=== PATIENT | female | born 1940 | race Caucasian/White ===

== ENCOUNTER 2017-08-01 23:54 | Observation (INO) | payer MEDICARE ==
[~2017-08-01] VITALS: Ht 167.6 cm; Wt 92.3 kg
[~2017-08-01 23:54] MED LIST: ACETAMINOPHEN500 M3 PO; ALDACTONE 25MG25 MG NG; AMARYL 2MG TABLE2 MG PO; ASPIRIN 81MG TA81 MG PO; BACTRIM DS 8001 TA1 PO; BUMETANIDE2 MG PO; CARVEDILOL 1212.5 MG PO; DILTIAZEM 180180 MG PO; DIPHENHYDRAMINE25 M1 PO; ELIQUIS5 MG PO; FUROSEMIDE80 MG PO; GLIMEPIRIDE 2MG2 MG PO; HUMALOG MIX75/253 ML SC; IPRATROPIUM BROM3 M2 IH; ISOSORBIDE MONO30 MG PO; LEVAQUIN500 MG PO; LEVOTHYROXINE0.05 M2 PO; LOPRESSOR 50 MG50 MG PO; NITROGLYCERIN0.4 MG SL; NOVOLIN 70/30 710 ML SC; OXYBUTYNIN5 MG PO; PANTOPRAZOLE SO40 M1 PO; PRAVASTATIN 40M40 MG PO; PREDNISONE 20MG20 MG PO; PROZAC40 MG PO
[2017-08-01 23:55] VITALS: BP 139/70
[2017-08-02] VITALS (9 sets, daily range): BP systolic 115–151; BP diastolic 42–90
--- OUTSIDE RECORDS SUMMARY | 2017-08-02 00:14 | External Medical Summary Rpt | Continuity of Care Document ---
Author Author Organization Address Unknown Phone Unavailable Care Team Providers Care Assessment Specialist Name Role Phone , Unavailable Unavailable EMS Current Medications Section EMS Allergies and Adverse Reactions EMS Past Medical History Medications Administered Section EMS Procedures Performed EMS Vital Signs EMS Patient Care Report Narrative dispatched to [facility] for transport to SNF. upon arrival pt was in treatment chair. pt was able to stand and pivot with assistance with no incident. pt was transported by stretcher due to being unable to sit upright safely due to severe pain from compression fracture to back. while transporting pt was monitored and assessed with all findings documented elsewhere in this report. upon arrival pt was taken to room where crew transferred pt into bed with no incident. pt satnam was turned over to staff
--- OUTSIDE RECORDS SUMMARY | 2017-08-02 00:14 | External Medical Summary Rpt | Continuity of Care Document ---
Author Author Organization Address Unknown Phone Unavailable Care Team Providers Care Warehouse Technician Name Role Phone , Unavailable Unavailable EMS Current Medications Section EMS Allergies and Adverse Reactions EMS Past Medical History Medications Administered Section EMS Procedures Performed EMS Vital Signs EMS Patient Care Report Narrative dispatched to [facility] for transport to SNF. upon arrival pt [...]
--- OUTSIDE RECORDS SUMMARY | 2017-08-02 00:16 | External Medical Summary Rpt | Continuity of Care Document ---
Author Author Organization Address Unknown Phone Unavailable Care Team Providers Care Corporate Security Manager Name Role Phone , Unavailable Unavailable EMS Current Medications Section EMS Allergies and Adverse Reactions EMS Past Medical History Medications Administered Section EMS Procedures Performed EMS Vital Signs EMS Patient Care Report Narrative on arrival the patient was sitting in a chair in the reclined position. the patient has finished her scheduled dialysis treatment. the patient stated she was able to stand on one leg with assistance and pivot and sit down on the cot. the patient was assisted to the cot and secured. the patients vitals were taken. the patient is alert. the patients back pain is about a 5 out of 10. the patient was transported without change. vitals were monitored en route. the patients pain level remained the same during transport. at destination the patient was assisted to the bed from the cot. patient care was turned over to the nurse.
--- OUTSIDE RECORDS SUMMARY | 2017-08-02 00:16 | External Medical Summary Rpt | Continuity of Care Document ---
Author Author Organization Address Unknown Phone Unavailable Care Team Providers Care Ingot Car Operator Name Role Phone , Unavailable Unavailable EMS Current Medications Section EMS Allergies and Adverse Reactions EMS Past Medical History Medications Administered Section EMS Procedures Performed EMS Vital Signs EMS Patient Care Report Narrative Dispatched for a transfer call from [facility] to [facility] for a 76 y/o female going for a dialysis appointment. Pt has a history of renal failure, COPD, hypertension, depression, asthma, atrial fibrillation, urinary tract infection, congestive heart failure, hyperlipidemia, hypothyroid, and diabetes. Pt requires stretcher transport due to inability to sit upright safely during transport. Pt has leg fracture and chronic back pain due to compression fracture. Pt is unable to sit upright for long periods of time. Arrived on scene to find pt sitting in wheelchair in mild discomfort. Pt was transferred from wheelchair to stretcher via stand and pivot x1 assist. No incident occurred. Pt was on 2 lpm of oxygen upon arrival on scene however pt chose to take nasal cannula off for transport. No difficulty breathing was noticed so oxygen was not administered en route to dialysis. Rails were placed in upright position and seatbelts were used to mine analyst's specifications. Vitals were taken and are as recorded in previous section of this report. Pt remained unchanged during transport. Arrived at destination and transferred pt from stretcher to chair via stand and pivot x1 assist. No incident occurred. Pt was reclined in chair to allow legs to be outstretched and patient to be in more comfortable position for back pain. Verbal report was given to nurse and care was transferred to receiving facility.
--- OUTSIDE RECORDS SUMMARY | 2017-08-02 00:16 | External Medical Summary Rpt | Continuity of Care Document ---
Author Author Organization Address Unknown Phone Unavailable Care Team Providers Care Embedded Software Programmer Name Role Phone , Unavailable Unavailable EMS [...]
--- OUTSIDE RECORDS SUMMARY | 2017-08-02 00:16 | External Medical Summary Rpt | Continuity of Care Document ---
Author Author Organization Address Unknown Phone Unavailable Care Team Providers Care Client Care Consultant Name Role Phone , Unavailable Unavailable EMS Current Medications Section EMS Allergies and Adverse Reactions EMS Past Medical History Medications Administered Section EMS Procedures Performed EMS Vital Signs EMS Patient Care Report Narrative pt at [place] bed #1307 pt c o pos for esbl esrd right lower leg fx and back injury with compression pt moved to the cot and secured pt tm tx to [facility] [place] pt placed in a chair for her tm pt and report turned over to dialysis staff with her bag.
--- OUTSIDE RECORDS SUMMARY | 2017-08-02 00:16 | External Medical Summary Rpt | Continuity of Care Document ---
Author Author Organization Address Unknown Phone Unavailable Care Team Providers Care Buffer Machine Name Role Phone , Unavailable Unavailable EMS Current Medications Section EMS Allergies and Adverse Reactions EMS Past Medical History Medications Administered Section EMS Procedures Performed EMS Vital Signs EMS Patient Care Report Narrative pt at [place] bed #1307 pt c o pos for esbl esrd right lower leg fx and back injury with compression pt moved to the cot and secured pt tm tx to [facility] [place] pt placed in a chair for her tm pt and report turned over to dialysis staff with her bag.
--- OUTSIDE RECORDS SUMMARY | 2017-08-02 00:16 | External Medical Summary Rpt | Continuity of Care Document ---
Author Author Organization Address Unknown Phone Unavailable Care Team Providers Care Clamper Name Role Phone , Unavailable Unavailable EMS [...]
--- OUTSIDE RECORDS SUMMARY | 2017-08-02 00:16 | External Medical Summary Rpt | Continuity of Care Document ---
Author Author Organization Address Unknown Phone Unavailable Care Team Providers Care Testing Projects Administrator Name Role Phone , Unavailable Unavailable EMS Current Medications Section EMS Allergies and Adverse Reactions EMS Past Medical History Medications Administered Section EMS Procedures Performed EMS Vital Signs EMS Patient Care Report Narrative pt at [place] bed #1307 pt c o pos for esbl esrd right lower leg fx and back injury with compression pt moved to the cot and secured pt tm tx to [facility] [place] pt placed in a chair for her tm pt and report turned over to dialysis staff with her bag.
--- OUTSIDE RECORDS SUMMARY | 2017-08-02 00:16 | External Medical Summary Rpt | Continuity of Care Document ---
Author Author Organization Address Unknown Phone Unavailable Care Team Providers Care Fryer Line Helper Name Role Phone , Unavailable Unavailable EMS [...]
--- OUTSIDE RECORDS SUMMARY | 2017-08-02 00:16 | External Medical Summary Rpt | Continuity of Care Document ---
Author Author Organization Address Unknown Phone Unavailable Care Team Providers Care Behavioral Health Aide Name Role Phone , Unavailable Unavailable EMS Current Medications Section EMS Allergies and Adverse Reactions EMS Past Medical History Medications Administered Section EMS Procedures Performed EMS Vital Signs EMS Patient Care Report Narrative Dispatched for a transfer call from [facility] to [facility] for a 76 y/o female going for [...] upright position and seatbelts were used to stock parts inspector's specifications. Vitals were taken and are as [...]
--- OUTSIDE RECORDS SUMMARY | 2017-08-02 00:16 | External Medical Summary Rpt | Continuity of Care Document ---
Author Author Organization Address Unknown Phone Unavailable Care Team Providers Care Mechanism Inspector Name Role Phone , Unavailable Unavailable EMS Current Medications Section EMS Allergies and Adverse Reactions EMS Past Medical History Medications Administered Section EMS Procedures Performed EMS Vital Signs EMS Patient Care Report Narrative pt at [place] bed #1307 pt c o pos for esbl esrd right lower leg fx and back injury with compression pt moved to the cot and secured pt tm tx to [facility] [place] pt placed in a chair for her tm pt and report turned over to dialysis staff with her bag.
--- OUTSIDE RECORDS SUMMARY | 2017-08-02 00:17 | External Medical Summary Rpt | Continuity of Care Document ---
Author Author Organization Address Unknown Phone Unavailable Care Team Providers Care Business Analysis Specialist Name Role Phone , Unavailable Unavailable EMS Current Medications Section EMS Allergies and Adverse Reactions EMS Past Medical History Medications Administered Section EMS Procedures Performed EMS Vital Signs EMS Patient Care Report Narrative Dispatched for a transfer call from [facility] to [facility] for a 76 y/o female going for [...] upright position and seatbelts were used to car sander's specifications. Vitals were taken and are as [...]
--- OUTSIDE RECORDS SUMMARY | 2017-08-02 00:17 | External Medical Summary Rpt | Continuity of Care Document ---
Author Author Organization Address Unknown Phone Unavailable Care Team Providers Care Raisin Separator Operator Name Role Phone , Unavailable Unavailable EMS Current Medications Section EMS Allergies and Adverse Reactions EMS Past Medical History Medications Administered Section EMS Procedures Performed EMS Vital Signs EMS Patient Care Report Narrative Dispatched to transport a patient back to [facility] after one of her 3X per week dialysis appointments patient has history of ESRD, Chronic pain due to to leg fracture , and chronic back pain with compressed fracture on arrival received medical report from nurse. located patient supine in reclining chair patients vitals were all with in normal range patient moved to cot with assistance side rails and straps were in place before transport. patient remained calm during transport with no change in condition. on arrival at [facility] patients medical and transport report was given to receiving nurse patient taken to room and moved into bed with assistance side rails were put in place bed lowered before care of patient was turned over to staff
--- OUTSIDE RECORDS SUMMARY | 2017-08-02 00:17 | External Medical Summary Rpt | Continuity of Care Document ---
Author Author Organization Address Unknown Phone Unavailable Care Team Providers Care Patient Accounts Specialist Name Role Phone , Unavailable Unavailable EMS Current Medications Section EMS Allergies and Adverse Reactions EMS Past Medical History Medications Administered Section EMS Procedures Performed EMS Vital Signs EMS Patient Care Report Narrative pt being transported for dialysis tx, which is not available at sending facility. Pt requires special positioning due to severe back pain and is unable to sit up erect for transport. pt found in bed then moved to cot via one person stand and assist. pt secured with straps and rails up. Pt loaded and monitored. Pt taken in on cot and moved to tx chair . report given.
--- OUTSIDE RECORDS SUMMARY | 2017-08-02 00:17 | External Medical Summary Rpt | Continuity of Care Document ---
Author Author Organization Address Unknown Phone Unavailable Care Team Providers Care Timber Framer Name Role Phone , Unavailable Unavailable EMS Current Medications Section EMS Allergies and Adverse Reactions EMS Past Medical History Medications Administered Section EMS Procedures Performed EMS Vital Signs EMS Patient Care Report Narrative dispatched to transort call. pt going from [facility] to [facility]. pt needs stretcher due to vertebral compression fx. pt found sitting in wheel chair in room. pt on room air. pt assisted to stand and pivot to cot x2. pt placed in position of comfort. pt secured to cot via straps x5 rails x2. pt loaded into ambulance. pt monitored per bls protocol during transport and showed no changes. pt unloadaded from ambulance and taken to tx chair at facility. pt assisted to stand and pivot to chair x2. pt care and report given to nurse on staff.
--- OUTSIDE RECORDS SUMMARY | 2017-08-02 00:17 | External Medical Summary Rpt | Continuity of Care Document ---
Author Author Organization Address Unknown Phone Unavailable Care Team Providers Care Time Study Analyst Name Role Phone , Unavailable Unavailable EMS Current Medications Section EMS Allergies and Adverse Reactions EMS Past Medical History Medications Administered Section EMS Procedures Performed EMS Vital Signs EMS Patient Care Report Narrative dispatched to transort call. pt going from [facility] to [facility]. pt needs stretcher due to vertebral [...]
--- OUTSIDE RECORDS SUMMARY | 2017-08-02 00:17 | External Medical Summary Rpt | Continuity of Care Document ---
Author Author Organization Address Unknown Phone Unavailable Care Team Providers Care Voice Professor Name Role Phone , Unavailable Unavailable EMS [...]
--- OUTSIDE RECORDS SUMMARY | 2017-08-02 00:17 | External Medical Summary Rpt | Continuity of Care Document ---
Author Author Organization Address Unknown Phone Unavailable Care Team Providers Care Hip Hop Performers Name Role Phone , Unavailable Unavailable EMS Current Medications Section EMS Allergies and Adverse Reactions EMS Past Medical History Medications Administered Section EMS Procedures Performed EMS Vital Signs EMS Patient Care Report Narrative Unit [address] was dispatched to dialysis center in [place] for pt transport to [facility]. Pt was at dialysis for appt. Pt has a past medical hx which is noted in the pcr and allergies are also noted in the pcr. Pt needed medical transport due to generalized weakness from dialysis appt and is unable to ambulate, per dispatch if insurance does not cover facility will pay for transport. ABC's were within normal ranges with no changes. Upon a head to toe exam no abnormal findings. Pt was found sitting in a recliner, and stood and moved to the stretcher with assistance of crew and strapped in with seatbealts. Upon arrival at facility pt was moved from the stretcher to the bed by [facility] crew using the draw sheet method. All necessary signatures gathered and care handed to higher [facility] and and [facility] departed scene.
--- OUTSIDE RECORDS SUMMARY | 2017-08-02 00:17 | External Medical Summary Rpt | Continuity of Care Document ---
Author Author Organization Address Unknown Phone Unavailable Care Team Providers Care Traveling Buyer Name Role Phone , Unavailable Unavailable EMS Current Medications Section EMS Allergies and Adverse Reactions EMS Past Medical History Medications Administered Section EMS Procedures Performed EMS Vital Signs EMS Patient Care Report Narrative Unit 304 was dispatched to dialysis center in [place] for pt transport to [facility]. Pt was at dialysis for appt. [...] from the stretcher to the bed by [facility] crew using the draw sheet method. All necessary signatures gathered and care handed to higher [facility] [place] and and [facility] departed scene.
--- OUTSIDE RECORDS SUMMARY | 2017-08-02 00:17 | External Medical Summary Rpt | Continuity of Care Document ---
Author Author Organization Address Unknown Phone Unavailable Care Team Providers Care Inside Sales Account Executive Name Role Phone , Unavailable Unavailable EMS Current Medications Section EMS Allergies and Adverse Reactions EMS Past Medical History Medications Administered Section EMS Procedures Performed EMS Vital Signs EMS Patient Care Report Narrative Dispatched to transport a patient back to [facility] after one of her 3X per week [...] no change in condition. on arrival at [facility] patients medical and transport report was given to receiving nurse patient taken to room and moved into bed with assistance side rails were put in place bed lowered before care of patient was turned over to staff
--- OUTSIDE RECORDS SUMMARY | 2017-08-02 00:17 | External Medical Summary Rpt | Continuity of Care Document ---
Author Author Organization Address Unknown Phone Unavailable Care Team Providers Care Heel Sewer Name Role Phone , Unavailable Unavailable EMS Current Medications Section EMS Allergies and Adverse Reactions EMS Past Medical History Medications Administered Section EMS Procedures Performed EMS Vital Signs EMS Patient Care Report Narrative Dispatched to transport a patient back to [facility] after one of her 3X per week [...] in condition. on arrival at [facility] patients medical and transport report was given to receiving nurse patient taken to room and moved into bed with assistance side rails were put in place bed lowered before care of patient was turned over to staff
--- OUTSIDE RECORDS SUMMARY | 2017-08-02 00:17 | External Medical Summary Rpt | Continuity of Care Document ---
Author Author Organization Address Unknown Phone Unavailable Care Team Providers Care Iphone Developer Name Role Phone , Unavailable Unavailable EMS Current Medications Section EMS Allergies and Adverse Reactions EMS Past Medical History Medications Administered Section EMS Procedures Performed EMS Vital Signs EMS Patient Care Report Narrative Unit 304 was dispatched to dialysis center in [place] for pt transport to [facility]. Pt was at dialysis for appt. Pt [...] from the stretcher to the bed by [facility] crew using the draw sheet method. All necessary signatures gathered and care handed to higher [facility] and and [facility] departed scene.
--- OUTSIDE RECORDS SUMMARY | 2017-08-02 00:17 | External Medical Summary Rpt | Continuity of Care Document ---
Author Author Organization Address Unknown Phone Unavailable Care Team Providers Care Aircraft Power Plant Assembler Name Role Phone , Unavailable Unavailable EMS Current Medications Section EMS Allergies and Adverse Reactions EMS Past Medical History Medications Administered Section EMS Procedures Performed EMS Vital Signs EMS Patient Care Report Narrative Dispatched for a transfer call from [facility] to [facility] for a 76 y/o female going [...] upright position and seatbelts were used to kiosk sales representative's specifications. Vitals were taken and are as [...]
--- OUTSIDE RECORDS SUMMARY | 2017-08-02 00:17 | External Medical Summary Rpt | Continuity of Care Document ---
Author Author Organization Address Unknown Phone Unavailable Care Team Providers Care Teller Name Role Phone , Unavailable Unavailable EMS [...]
--- OUTSIDE RECORDS SUMMARY | 2017-08-02 00:17 | External Medical Summary Rpt | Continuity of Care Document ---
Author Author Organization Address Unknown Phone Unavailable Care Team Providers Care Executive Producer Promos Name Role Phone , Unavailable Unavailable EMS Current Medications Section EMS Allergies and Adverse Reactions EMS Past Medical History Medications Administered Section EMS Procedures Performed EMS Vital Signs EMS Patient Care Report Narrative Unit 304 was dispatched to dialysis center in [place] for pt transport to [facility]. Pt [...] from the stretcher to the bed by [facility] crew using the draw sheet method. All necessary signatures gathered and care handed to higher [facility] and and am[facility] departed scene.
--- OUTSIDE RECORDS SUMMARY | 2017-08-02 00:18 | External Medical Summary Rpt | Continuity of Care Document ---
Author Author Organization Address Unknown Phone Unavailable Care Team Providers Care Nitrator Operator Name Role Phone , Unavailable Unavailable EMS Current Medications Section EMS Allergies and Adverse Reactions EMS Past Medical History Medications Administered Section EMS Procedures Performed EMS Vital Signs EMS Patient Care Report Narrative dispatched to transort call. pt going from [facility] to [facility]. pt needs stretcher due to vertebral compression [...]
--- OUTSIDE RECORDS SUMMARY | 2017-08-02 00:18 | External Medical Summary Rpt | Continuity of Care Document ---
Author Author Organization Address Unknown Phone Unavailable Care Team Providers Care Theatrical Agent Name Role Phone , Unavailable Unavailable EMS Current Medications Section EMS Allergies and Adverse Reactions EMS Past Medical History Medications Administered Section EMS Procedures Performed EMS Vital Signs EMS Patient Care Report Narrative Unit was dispatched for a 76 year old female to be transferred back [place]. TRANSPORT REQUIRED DUE TO COPD, CONGESTIVE HEART FAILURE, AND HYPERTENSION. Pt was found awake and oriented x4. She was assisted in being transferred from the chair to the cot. Pt was then aecured via straps x5 and rails x2. Prior to transport a baseline set of vitals were taken. Prior to arrival a second set of vitals were taken. Upon arrival the pt was assisted in transferring from the cot to the bed. Care of the pt was then given to Keyanna Ann RN Unit clear at 19:47.
--- OUTSIDE RECORDS SUMMARY | 2017-08-02 00:18 | External Medical Summary Rpt | Continuity of Care Document ---
Author Author Organization Address Unknown Phone Unavailable Care Team Providers Care Ocean Fishing Guide Name Role Phone , Unavailable Unavailable EMS Current Medications Section EMS Allergies and Adverse Reactions EMS Past Medical History Medications Administered Section EMS Procedures Performed EMS Vital Signs EMS Patient Care Report Narrative Unit was dispatched for a 76 year old female to be transferred back [place]. TRANSPORT REQUIRED DUE TO COPD, CONGESTIVE HEART [...]
--- OUTSIDE RECORDS SUMMARY | 2017-08-02 00:18 | External Medical Summary Rpt | Continuity of Care Document ---
Author Author Organization Address Unknown Phone Unavailable Care Team Providers Care Chucking Lathe Operator Name Role Phone , Unavailable Unavailable EMS Current Medications Section EMS Allergies and Adverse Reactions EMS Past Medical History Medications Administered Section EMS Procedures Performed EMS Vital Signs EMS Patient Care Report Narrative dispatched to transort call. pt going from [facility] to [facility]. pt needs stretcher due to vertebral [...]
--- OUTSIDE RECORDS SUMMARY | 2017-08-02 00:22 | External Medical Summary Rpt | CCD ---
Author Author , [facility] Organization [facility] Address Unknown Phone [email or web address] Purpose Continuity of Care Document - 01-30-2013 through 2016 Results Labs Lab Lab Date Result Refere Interp Status Commen Order Detail nces retati t Range on BNP (NT-proBNP) (06-16-2013 05:56) NT-proB 2837.0 0.0-900 Above complet [employer] 013 pg/mL .0 high ed 05:56 normal PHOSPHORUS,SERUM (06-16-2013 05:56) Phospho 4.4 2.5-4.9 Normal complet amber 013 mg/dL ed 05:56 MAGNESIUM,SERUM (06-16-2013 05:56) Magnesi 2.0 1.8-2.4 Normal complet um 013 mg/dL ed 05:56 TROPONIN I,JERI (IN HOUSE) (06-16-2013 05:56) Troponi 0.37 0.00-0. Above complet n I 013 ng/mL 10 high ed 05:56 normal CPK (06-16-2013 05:56) CK 46 U/L 26-192 Normal complet 013 ed 05:56 BASIC METABOLIC PANEL (06-16-2013 05:56) BUN/Cre 22.8 6.0-20. Above complet at 013 0 high ed Ratio 05:56 normal Anion 9.4 10.0-20 Below complet Gap 013 mEq/L .0 low ed 05:56 normal GLOMERU 29 complet LAR 013 mL/min/ ed FILTRAT 05:56 1.73 m2 ION RATE GLOMERU 35 complet LAR 013 mL/min/ ed FILTRAT 05:56 1.73 m2 ION RATE Sheeba n Glucose 171 70-99 Above complet 013 mg/dL high ed 05:56 normal BUN 09-06-2 41 7-18 Above complet 013 mg/dL high ed 05:56 normal Creatin -06-2 1.8 0.6-1.3 Above complet ine 013 mg/dL high ed 05:56 normal Sodium 06-16-2 138 136-145 Normal complet 013 mEq/L ed 05:56 Potassi 06-16-2 3.9 3.5-5.1 Normal complet um 013 mEq/L ed 05:56 Chlorid 06-16-2 98 98-107 Normal complet e 013 mEq/L ed 05:56 CO2 06-16-2 34.0 22-29 Above complet 013 mmol/L high ed 05:56 normal Calcium 06-16-2 8.8 8.5-10. Normal complet 013 mg/dL 1 ed 05:56 CBC W/DIFF (06-15-2013 04:15) Lymphoc -05-2 1.6 X 0.7-4.3 Normal complet yte 013 10 ed Count 04:15 Basophi -05-2 0.0 X 0.0-0.1 Normal complet l Count 013 10 ed 04:15 Eosinop -05-2 0.1 X 0.0-0.8 Normal complet hil 013 10 ed Count 04:15 Monocyt -05-2 0.6 X 0.2-1.2 Normal complet e Count 013 10 ed 04:15 Neutrop -05-2 9.3 X 1.5-7.1 Above complet hil 013 10 high ed Count 04:15 normal Basophi -05-2 0.2 % 0.0-2.0 Normal complet ls % 013 ed 04:15 Eosinop -05-2 0.6 % 0.0-4.0 Normal complet hils % 013 ed 04:15 Monocyt -05-2 5.3 % 0.0-13. Normal complet es % 013 0 ed 04:15 Lymphoc 09-05-2 14.0 % 20.0-35 Below complet ytes % 013 .0 low ed 04:15 normal Neutrop -05-2 79.9 % 50.0-70 Above complet hils % 013 .0 high ed 04:15 normal MPV -05-2 9.3 fl 6.6-9.3 Normal complet 013 ed 04:15 RDW -05-2 17.8 % 12.0-15 Above complet 013 .0 high ed 04:15 normal MCV -05-2 80.2 fl 80.0-10 Normal complet 013 0.0 ed 04:15 MCHC -05-2 33.3 32.0-36 Normal complet 013 gm/dL .0 ed 04:15 MCH -05-2 26.7 pg 27.0-32 Below complet 013 .0 low ed 04:15 normal Platele 06-15-2 196 X 140-450 Normal complet t 013 10 ed 04:15 Hematoc -05-2 30.6 % 36.0-47 Below complet rit 013 .0 low ed 04:15 normal Hemoglo -05-2 10.2 12.0-15 Below complet bin 013 gm/dL .0 low ed 04:15 normal RBC 06-15-2 3.81 X 4.20-5. Below complet 013 10 40 low ed 04:15 normal WBC 06-15-2 11.7 X 3.5-9.6 Above complet 013 10 high ed 04:15 normal MAGNESIUM,SERUM (06-15-2013 04:15) Magnesi --2 2.0 1.8-2.4 Normal complet um 013 mg/dL ed 04:15 BASIC METABOLIC PANEL (06-15-2013 04:15) Glucose 06-15-2 108 70-99 Above complet 013 mg/dL high ed 04:15 normal BUN 06-15-2 41 7-18 Above complet 013 mg/dL high ed 04:15 normal Creatin 06-15-2 1.8 0.6-1.3 Above complet ine 013 mg/dL high ed 04:15 normal Sodium 06-15-2 137 136-145 Normal complet 013 mEq/L ed 04:15 Potassi 06-15-2 3.8 3.5-5.1 Normal complet um 013 mEq/L ed 04:15 Chlorid 06-15-2 100 98-107 Normal complet e 013 mEq/L ed 04:15 CO2 06-15-2 32.4 22-29 Above complet 013 mmol/L high ed 04:15 normal Calcium 06-15-2 8.9 8.5-10. Normal complet 013 mg/dL 1 ed 04:15 BUN/Cre 06-15-2 22.8 6.0-20. Above complet at 013 0 high ed Ratio 04:15 normal Anion 8.5 10.0-20 Below complet Gap 013 mEq/L .0 low ed 04:15 normal GLOMERU 29 complet LAR 013 mL/min/ ed FILTRAT 04:15 1.73 m2 ION RATE GLOMERU 06-15-2 35 complet LAR 013 mL/min/ ed FILTRAT 04:15 1.73 m2 ION RATE Sheeba n BNP (NT-proBNP) (06-15-2013 04:15) NT-proB 3455.5 0.0-900 Above complet [employer] 013 pg/mL .0 high ed 04:15 normal PHOSPHORUS,SERUM (06-15-2013 04:15) Phospho 4.0 2.5-4.9 Normal complet amber 013 mg/dL ed 04:15 TROPONIN I,JERI (IN HOUSE) (06-15-2013 04:15) Troponi 0.51 0.00-0. Above complet n I 013 ng/mL 10 high ed 04:15 normal VANCOMYCIN TROUGH (06-14-2013 17:40) Vancomy 10.3 10.0-20 Normal complet jimenez 013 mcg/mL .0 ed Trough 17:40 CPK TOTAL W/CKMB IF INDICATED (06-14-2013 14:45) CK 50 U/L 26-192 Normal complet 013 ed 14:45 TROPONIN I,JERI (IN HOUSE) (2013 14:45) Troponi 0.59 0.00-0. Above complet n I 013 ng/mL 10 high ed 14:45 normal BASIC METABOLIC PANEL (06-14-2013 14:45) Glucose 293 70-99 Above complet 013 mg/dL high ed 14:45 normal BUN 43 7-18 Above complet 013 mg/dL high ed 14:45 normal Creatin 1.8 0.6-1.3 Above complet ine 013 mg/dL high ed 14:45 normal Sodium 133 136-145 Below complet 013 mEq/L low ed 14:45 normal Potassi 4.6 3.5-5.1 Normal complet um 013 mEq/L ed 14:45 Chlorid 98 98-107 Normal complet e 013 mEq/L ed 14:45 CO2 2 30.5 22-29 Above complet 013 mmol/L high ed 14:45 normal Calcium 2 8.5 8.5-10. Normal complet 013 mg/dL 1 ed 14:45 BUN/Cre 23.9 6.0-20. Above complet at 013 0 high ed Ratio 14:45 normal Anion 2 9.2 10.0-20 Below complet Gap 013 mEq/L .0 low ed 14:45 normal GLOMERU 29 complet LAR 013 mL/min/ ed FILTRAT 14:45 1.73 m2 ION RATE GLOMERU 06-14- 35 complet LAR 013 mL/min/ ed FILTRAT 14:45 1.73 m2 ION RATE Sheeba n BNP (NT-proBNP) (06-14-2013 14:45) NT-proB 3824.7 0.0-900 Above complet [employer] 013 pg/mL .0 high ed 14:45 normal BASIC METABOLIC PANEL (06-14-2013 05:15) Sodium 06-14- 135 136-145 Below complet 013 mEq/L low ed 05:15 normal Potassi 4.4 3.5-5.1 Normal complet um 013 mEq/L ed 05:15 Chlorid 101 98-107 Normal complet e 013 mEq/L ed 05:15 CO2 29.7 22-29 Above complet 013 mmol/L high ed 05:15 normal Calcium 8.3 8.5-10. Below complet 013 mg/dL 1 low ed 05:15 normal BUN/Cre 2 24.1 6.0-20. Above complet at 013 0 high ed Ratio 05:15 normal Anion 06-14-2 8.2 10.0-20 Below complet Gap 013 mEq/L .0 low ed 05:15 normal GLOMERU 06-14-2 31 complet LAR 013 mL/min/ ed FILTRAT 05:15 1.73 m2 ION RATE GLOMERU 06-14-2 38 complet LAR 013 mL/min/ ed FILTRAT 05:15 1.73 m2 ION RATE Sheeba n Creatin 06-14-2 1.7 0.6-1.3 Above complet ine 013 mg/dL high ed 05:15 normal BUN -04-2 41 7-18 Above complet 013 mg/dL high ed 05:15 normal Glucose -04-2 120 70-99 Above complet 013 mg/dL high ed 05:15 normal CBC W/DIFF (06-14-2013 05:15) Lymphoc 09-04-2 1.6 X 0.7-4.3 Normal complet yte 013 10 ed Count 05:15 Basophi -04-2 0.0 X 0.0-0.1 Normal complet l Count 013 10 ed 05:15 Eosinop -04-2 0.0 X 0.0-0.8 Normal complet hil 013 10 ed Count 05:15 Monocyt 09-04-2 0.6 X 0.2-1.2 Normal complet e Count 013 10 ed 05:15 Neutrop -04-2 11.7 X 1.5-7.1 Above complet hil 013 10 high ed Count 05:15 normal Basophi -04-2 0.1 % 0.0-2.0 Normal complet ls % 013 ed 05:15 Eosinop -04-2 0.2 % 0.0-4.0 Normal complet hils % 013 ed 05:15 Monocyt -04-2 4.2 % 0.0-13. Normal complet es % 013 0 ed 05:15 Lymphoc -04-2 11.3 % 20.0-35 Below complet ytes % 013 .0 low ed 05:15 normal Neutrop -04-2 84.2 % 50.0-70 Above complet hils % 013 .0 high ed 05:15 normal MPV -04-2 9.1 fl 6.6-9.3 Normal complet 013 ed 05:15 RDW -04-2 18.2 % 12.0-15 Above complet 013 .0 high ed 05:15 normal MCV -04-2 82.6 fl 80.0-10 Normal complet 013 0.0 ed 05:15 MCHC -04-2 32.5 32.0-36 Normal complet 013 gm/dL .0 ed 05:15 MCH -04-2 26.9 pg 27.0-32 Below complet 013 .0 low ed 05:15 normal Platele -04-2 180 X 140-450 Normal complet t 013 10 ed 05:15 Hematoc 06-14-2 29.8 % 36.0-47 Below complet rit 013 .0 low ed 05:15 normal Hemoglo 06-14-2 9.7 12.0-15 Below complet bin 013 gm/dL .0 low ed 05:15 normal RBC 06-14-2 3.61 X 4.20-5. Below complet 013 10 40 low ed 05:15 normal WBC 06-14-2 13.9 X 3.5-9.6 Above complet 013 10 high ed 05:15 normal BNP (NT-proBNP) (06-14-2013 05:15) NT-proB 06-14-2 3723.4 0.0-900 Above complet [employer] 013 pg/mL .0 high ed 05:15 normal TROPONIN I,JERI (IN HOUSE) (06-14-2013 05:15) Troponi 06-14-2 0.66 0.00-0. Above complet n I 013 ng/mL 10 high ed 05:15 normal CPK (06-14-2013 05:15) CK 06-14-2 64 U/L 26-192 Normal complet 013 ed 05:15 PTT (06-13-2013 09:00) PTT 06-13-2 94.4 22.7-31 Above complet 013 seconds .2 high ed 09:00 normal BNP (NT-proBNP) (06-13-2013 07:35) NT-proB 06-13-2 3824.6 0.0-900 Above complet [employer] 013 pg/mL .0 high ed 07:35 normal TROPONIN I,JERI (IN HOUSE) (06-13-2013 07:35) Troponi 06-13-2 0.98 0.00-0. Above complet n I 013 ng/mL 10 high ed 07:35 normal CPK (06-13-2013 07:35) CK 06-13-2 147 U/L 26-192 Normal complet 013 ed 07:35 LACTIC ACID (IN-HOUSE) (06-13-2013 03:20) Lactate 06-13-2 0.6 0.4-2.0 Normal complet 013 mmol/L ed 03:20 CBC W/DIFF (06-13-2013 03:20) Lymphoc 06-13-2 1.4 X 0.7-4.3 Normal complet yte 013 10 ed Count 03:20 Basophi 09-03-2 0.0 X 0.0-0.1 Normal complet l Count 013 10 ed 03:20 Eosinop 09-03-2 0.0 X 0.0-0.8 Normal complet hil 013 10 ed Count 03:20 Monocyt 09-03-2 0.7 X 0.2-1.2 Normal complet e Count 013 10 ed 03:20 Neutrop 09-03-2 21.3 X 1.5-7.1 Above complet hil 013 10 high ed Count 03:20 normal Basophi 09-03-2 0.1 % 0.0-2.0 Normal complet ls % 013 ed 03:20 Eosinop 09-03-2 0.1 % 0.0-4.0 Normal complet hils % 013 ed 03:20 Monocyt 09-03-2 2.9 % 0.0-13. Normal complet es % 013 0 ed 03:20 Lymphoc 09-03-2 5.9 % 20.0-35 Below complet ytes % 013 .0 low ed 03:20 normal Neutrop 09-03-2 91.0 % 50.0-70 Above complet hils % 013 .0 high ed 03:20 normal MPV 09-03-2 9.4 fl 6.6-9.3 Above complet 013 high ed 03:20 normal RDW 09-03-2 18.4 % 12.0-15 Above complet 013 .0 high ed 03:20 normal MCV 09-03-2 83.1 fl 80.0-10 Normal complet 013 0.0 ed 03:20 MCHC 09-03-2 32.3 32.0-36 Normal complet 013 gm/dL .0 ed 03:20 MCH 09-03-2 26.8 pg 27.0-32 Below complet 013 .0 low ed 03:20 normal Platele 09-03-2 194 X 140-450 Normal complet t 013 10 ed 03:20 Hematoc 09-03-2 29.7 % 36.0-47 Below complet rit 013 .0 low ed 03:20 normal Hemoglo 09-03-2 9.6 12.0-15 Below complet bin 013 gm/dL .0 low ed 03:20 normal RBC 09-03-2 3.58 X 4.20-5. Below complet 013 10 40 low ed 03:20 normal WBC 09-03-2 23.3 X 3.5-9.6 Above complet 013 10 high ed 03:20 normal COMPREHENSIVE METABOLIC PANEL (06-13-2013 03:20) GLOMERU 06-13-2 41 complet LAR 013 mL/min/ ed FILTRAT 03:20 1.73 m2 ION RATE Sheeba n GLOMERU 06-13- 34 complet LAR 013 mL/min/ ed FILTRAT 03:20 1.73 m2 ION RATE Anion 14.5 10.0-20 Normal complet Gap 013 mEq/L .0 ed 03:20 A/G 06-13-2 1.0 1.0-2.0 Normal complet Ratio 013 ed 03:20 BUN/Cre 2 24.4 6.0-20. Above complet at 013 0 high ed Ratio 03:20 normal Bilirub 06-13-2 0.40 0.20-1. Normal complet in, 013 mg/dL 00 ed Total 03:20 AST 06-13-2 28 U/L 15-37 Normal complet 013 ed 03:20 ALT 06-13-2 19 U/L 30-65 Below complet 013 low ed 03:20 normal Alk 06-13-2 90 U/L 50-136 Normal complet Phos 013 ed 03:20 Albumin 06-13-2 3.2 3.4-5.0 Below complet 013 gm/dL low ed 03:20 normal Total 06-13-2 6.4 6.4-8.2 Normal complet Protein 013 gm/dL ed 03:20 Calcium 06-13-2 8.5 8.5-10. Normal complet 013 mg/dL 1 ed 03:20 CO2 06-13-2 24.0 22-29 Normal complet 013 mmol/L ed 03:20 Chlorid 06-13-2 101 98-107 Normal complet e 013 mEq/L ed 03:20 Potassi 06-13-2 4.9 3.5-5.1 Normal complet um 013 mEq/L ed 03:20 Sodium 03-2 135 136-145 Below complet 013 mEq/L low ed 03:20 normal Creatin 06-13-2 1.6 0.6-1.3 Above complet ine 013 mg/dL high ed 03:20 normal BUN 06-13-2 39 7-18 Above complet 013 mg/dL high ed 03:20 normal Glucose 09-03-2 87 70-99 Normal complet 013 mg/dL ed 03:20 MAGNESIUM,SERUM (06-13-2013 03:20) Magnesi 2.2 1.8-2.4 Normal complet um 013 mg/dL ed 03:20 PHOSPHORUS,SERUM (06-13-2013 03:20) Phospho 4.2 2.5-4.9 Normal complet amber 013 mg/dL ed 03:20 PTT (06-13-2013 00:50) PTT 52.6 22.7-31 Above complet 013 seconds .2 high ed 00:50 normal STREPTOCOCCUS PNEMONIA AG,URINE (06-12-2013 23:30) Strepto Negativ Negativ Normal complet coccus 013 e e ed Pneumon 23:30 iae Urinary Antigen [facility] (06-12-2013 23:30) Legione Negativ Negativ Normal complet lla 013 e e ed Urinary 23:30 Antigen PTT (06-12-2013 19:06) PTT 57.4 22.7-31 Above complet 013 seconds .2 high ed 19:06 normal LACTIC ACID (IN-HOUSE) (06-12-2013 13:41) Lactate 2.0 0.4-2.0 Normal complet 013 mmol/L ed 13:41 BASIC METABOLIC PANEL (06-12-2013 11:01) Glucose 258 70-99 Above complet 013 mg/dL high ed 11:01 normal GLOMERU 38 complet LAR 013 mL/min/ ed FILTRAT 11:01 1.73 m2 ION RATE Sheeba n GLOMERU 31 complet LAR 013 mL/min/ ed FILTRAT 11:01 1.73 m2 ION RATE Anion 13.3 10.0-20 Normal complet Gap 013 mEq/L .0 ed 11:01 BUN/Cre 17.6 6.0-20. Normal complet at 013 0 ed Ratio 11:01 Calcium 8.6 8.5-10. Normal complet 013 mg/dL 1 ed 11:01 CO2 26.2 22-29 Normal complet 013 mmol/L ed 11:01 Chlorid 100 98-107 Normal complet e 013 mEq/L ed 11:01 Potassi 4.9 3.5-5.1 Normal complet um 013 mEq/L ed 11:01 Sodium 02 135 136-145 Below complet 013 mEq/L low ed 11:01 normal Creatin 1.7 0.6-1.3 Above complet ine 013 mg/dL high ed 11:01 normal BUN 30 7-18 Above complet 013 mg/dL high ed 11:01 normal CBC W/DIFF (06-12-2013 11:01) Monocyt 2.6 % 0.0-13. Normal complet es % 013 0 ed 11:01 Lymphoc 3.6 % 20.0-35 Below complet ytes % 013 .0 low ed 11:01 normal Neutrop 93.6 % 50.0-70 Above complet hils % 013 .0 high ed 11:01 normal MPV 9.1 fl 6.6-9.3 Normal complet 013 ed 11:01 RDW 18.1 % 12.0-15 Above complet 013 .0 high ed 11:01 normal MCV 81.6 fl 80.0-10 Normal complet 013 0.0 ed 11:01 MCHC 32.2 32.0-36 Normal complet 013 gm/dL .0 ed 11:01 MCH 26.3 pg 27.0-32 Below complet 013 .0 low ed 11:01 normal Platele 229 X 140-450 Normal complet t 013 10 ed 11:01 Hematoc 30.9 % 36.0-47 Below complet rit 013 .0 low ed 11:01 normal Hemoglo 9.9 12.0-15 Below complet bin 013 gm/dL .0 low ed 11:01 normal RBC 3.78 X 4.20-5. Below complet 013 10 40 low ed 11:01 normal Lymphoc 0.7 X 0.7-4.3 Normal complet yte 013 10 ed Count 11:01 Basophi 0.0 X 0.0-0.1 Normal complet l Count 013 10 ed 11:01 Eosinop 09-02-2 0.0 X 0.0-0.8 Normal complet hil 013 10 ed Count 11:01 Monocyt 09-02-2 0.5 X 0.2-1.2 Normal complet e Count 013 10 ed 11:01 Neutrop 09-02-2 17.0 X 1.5-7.1 Above complet hil 013 10 high ed Count 11:01 normal Basophi 09-02-2 0.2 % 0.0-2.0 Normal complet ls % 013 ed 11:01 Eosinop 09-02-2 0.0 % 0.0-4.0 Normal complet hils % 013 ed 11:01 WBC -02-2 18.2 X 3.5-9.6 Above complet 013 10 high ed 11:01 normal PROCALCITONIN (06-12-2013 10:30) Procalc -02-2 <0.05 0.00-1. Normal complet itonin 013 ng/mL 90 ed 10:30 BNP (NT-proBNP) (06-12-2013 10:30) NT-proB 06-12-2 4644.9 0.0-900 Above complet [employer] 013 pg/mL .0 high ed 10:30 normal TROPONIN I,JERI (IN HOUSE) (06-12-2013 10:30) Troponi --2 0.42 0.00-0. Above complet n I 013 ng/mL 10 high ed 10:30 normal CPK TOTAL W/CKMB IF INDICATED (06-12-2013 10:30) CK 06-12-2 93 U/L 26-192 Normal complet 013 ed 10:30 CPK (06-11-2013 22:10) CK 06-11-2 59 U/L 26-192 Normal complet 013 ed 22:10 TROPONIN I,JERI (IN HOUSE) (06-11-2013 22:10) Troponi --2 0.16 0.00-0. Above complet n I 013 ng/mL 10 high ed 22:10 normal CPK (06-11-2013 16:24) CK 06-11-2 49 U/L 26-192 Normal complet 013 ed 16:24 TROPONIN I,JERI (IN HOUSE) (06-11-2013 16:24) Troponi -01-2 0.18 0.00-0. Above complet n I 013 ng/mL 10 high ed 16:24 normal PT (06-11-2013 16:24) INR 1.06 0.90-1. Normal complet 013 22 ed 16:24 Prothro 11.4 10.0-11 Normal complet mbin 013 seconds .8 ed Time 16:24 GRAM STAIN (SPUTUM) (06-11-2013 16:06) [facility] RARE complet l 013 GRAM ed Report 16:06 NEGATIV E BACILLI [facility] RARE complet l 013 GRAM ed Report 16:06 POSITIV E COCCI [facility] <10 complet l 013 WBC/LPF ed Report 16:06 <25 EPI/LPF [facility] GRAM complet l 013 (Final) ed Report 16:06 [facility] Status: complet l 013 Final ed Report 16:06 Last Updated : 013 06:17 [facility] Collect complet l 013 ed: ed Report 16:06 013 16:06 [facility] Specime complet l 013 n: ed Report 16:06 SPUTUM CULTURE, SPUTUM (NURSING) (06-11-2013 16:06) [facility] Heavy complet l 013 Normal ed Report 16:06 Upper Respira tory Nel Noted [facility] CUL RES complet l 013 ed Report 16:06 (Final) [facility] Collect complet l 013 ed: ed Report 16:06 013 16:06 [facility] Specime complet l 013 n: ed Report 16:06 SPUTUM [facility] Status: complet l 013 Final ed Report 16:06 Last Updated : 013 22:12 UA DIPSTICK, REFLEX TO MICRO (06-11-2013 10:30) Glucose NEGATIV NEGATIV Normal complet 013 E E ed 10:30 UA 2+ NEGATIV Abnorma complet Protein 013 E l ed 10:30 Nitrite NEGATIV NEGATIV Normal complet 013 E E ed 10:30 Leukocy NEGATIV NEGATIV Normal complet te 013 E E ed 10:30 PH 5.0 5.0-7.0 Normal complet 013 ed 10:30 Specifi 1.025 1.016-1 Above complet c 013 .022 high ed [place] 10:30 normal Appeara CLEAR CLEAR Normal complet nce 013 ed 10:30 Color YELLOW YELLOW, Normal complet 013 STRAW,C ed 10:30 OLORLES S,PALE YELLOW Blood NEGATIV NEGATIV Normal complet 013 E E ed 10:30 Bilirub NEGATIV NEGATIV Normal complet in 013 E E ed 10:30 Urobili norm 0-1 Normal complet nogen 013 mg/dL ed 10:30 Ketones NEGATIV NEGATIV Normal complet 013 E E ed 10:30 CKMB (06-11-2013 09:58) CKMB% CKMB% 0.0-4.0 Normal complet 013 NOT ed 09:58 INDICAT ED % MMB 1.40 0.00-5. Normal complet 013 ng/mL 00 ed 09:58 CK 54 U/L 26-192 Normal complet 013 ed 09:58 TROPONIN I,JERI (IN HOUSE) (06-11-2013 09:58) Troponi 0.14 0.00-0. Above complet n I 013 ng/mL 10 high ed 09:58 normal BNP (NT-proBNP) (06-11-2013 09:58) NT-proB 1351.6 0.0-900 Above complet [employer] 013 pg/mL .0 high ed 09:58 normal COMPREHENSIVE METABOLIC PANEL (06-11-2013 09:58) AST 15 U/L 15-37 Normal complet 013 ed 09:58 ALT 15 U/L 30-65 Below complet 013 low ed 09:58 normal Alk 116 U/L 50-136 Normal complet Phos 013 ed 09:58 Albumin 3.5 3.4-5.0 Normal complet 013 gm/dL ed 09:58 Total 7.5 6.4-8.2 Normal complet Protein 013 gm/dL ed 09:58 Calcium 8.6 8.5-10. Normal complet 013 mg/dL 1 ed 09:58 CO2 30.1 22-29 Above complet 013 mmol/L high ed 09:58 normal Chlorid 101 98-107 Normal complet e 013 mEq/L ed 09:58 Potassi 4.5 3.5-5.1 Normal complet um 013 mEq/L ed 09:58 Sodium 138 136-145 Normal complet 013 mEq/L ed 09:58 Creatin 1.6 0.6-1.3 Above complet ine 013 mg/dL high ed 09:58 normal BUN 26 7-18 Above complet 013 mg/dL high ed 09:58 normal Glucose 195 70-99 Above complet 013 mg/dL high ed 09:58 normal GLOMERU 41 complet LAR 013 mL/min/ ed FILTRAT 09:58 1.73 m2 ION RATE Sheeba n GLOMERU 34 complet LAR 013 mL/min/ ed FILTRAT 09:58 1.73 m2 ION RATE Anion 10.9 10.0-20 Normal complet Gap 013 mEq/L .0 ed 09:58 A/G 0.9 1.0-2.0 Below complet Ratio 013 low ed 09:58 normal BUN/Cre 16.2 6.0-20. Normal complet at 013 0 ed Ratio 09:58 Bilirub 0.44 0.20-1. Normal complet in, 013 mg/dL 00 ed Total 09:58 CULTURE, BLOOD (06-11-2013 09:58) [facility] Collect complet l 013 ed: ed Report 09:58 013 09:58 [facility] Status: complet l 013 Final ed Report 09:58 Last Updated : 013 08:02 [facility] CUL RES complet l 013 ed Report 09:58 (Final) [facility] No complet l 013 Growth ed Report 09:58 After 24 Hours [facility] No complet l 013 Growth ed Report 09:58 After 48 Hours [facility] No complet l 013 Growth ed Report 09:58 After 3 Days [facility] No complet l 013 Growth ed Report 09:58 After 4 Days [facility] No complet l 013 Growth ed Report 09:58 After 5 Days [facility] Specime complet l 013 n: ed Report 09:58 BLOOD CULTURE, URINE (01-30-2013 22:40) [facility] No complet l 013 Growth ed Report 22:40 After 48 Hours [facility] No complet l 013 Growth ed Report 22:40 After 24 Hours [facility] CUL RES complet l 013 ed Report 22:40 (Final) [facility] Status: complet l 013 Final ed Report 22:40 Last Updated : 013 22:54 [facility] Collect complet l 013 ed: ed Report 22:40 013 22:40 [facility] Specime complet l 013 n: ed Report 22:40 URINE UA DIPSTICK, REFLEX TO MICRO (01-30-2013 22:40) Color YELLOW YELLOW, Normal complet 013 STRAW,C ed 22:40 OLORLES S,PALE YELLOW Blood NEGATIV NEGATIV Normal complet 013 E E ed 22:40 Bilirub 01-30-2 NEGATIV NEGATIV Normal complet in 013 E E ed 22:40 Urobili 01-30-2 norm 0-1 Normal complet nogen 013 mg/dL ed 22:40 Ketones 01-30-2 NEGATIV NEGATIV Normal complet 013 E E ed 22:40 Glucose 01-30-2 NEGATIV NEGATIV Normal complet 013 E E ed 22:40 UA 01-30-2 1+ NEGATIV Abnorma complet Protein 013 E l ed 22:40 Nitrite 01-30-2 NEGATIV NEGATIV Normal complet 013 E E ed 22:40 Leukocy 01-30-2 NEGATIV NEGATIV Normal complet te 013 E E ed 22:40 PH 01-30-2 5.0 5.0-7.0 Normal complet 013 ed 22:40 Specifi 01-30-2 1.015 1.016-1 Below complet c 013 .022 low ed [place] 22:40 normal Appeara CLEAR CLEAR Normal complet nce 013 ed 22:40 PT (01-30-2013 21:00) INR 1.02 0.90-1. Normal complet 013 22 ed 21:00 Prothro 11.0 10.0-11 Normal complet mbin 013 seconds .8 ed Time 21:00 CULTURE, BLOOD (01-30-2013 20:02) [facility] No [facility] l 013 Growth ed Report 20:02 After 5 Days [facility] No complet l 013 Growth ed Report 20:02 After 4 Days [facility] No complet l 013 Growth ed Report 20:02 After 3 Days [facility] No complet l 013 Growth ed Report 20:02 After 48 Hours [facility] No complet l 013 Growth ed Report 20:02 After 24 Hours [facility] Culture complet l 013 In ed Report 20:02 [facility] CUL RES complet l 013 ed Report 20:02 (Final) [facility] Status: complet l 013 Final ed Report 20:02 Last Updated : 013 19:26 [facility] Collect complet l 013 ed: ed Report 20:02 013 20:02 [facility] Spec[facility] complet l 013 n: ed Report 20:02 BLOOD CULTURE, BLOOD (01-30-2013 20:00) [facility] No complet l 013 Growth ed Report 20:00 After 5 Days [facility] No complet l 013 Growth ed Report 20:00 After 4 Days [facility] No complet l 013 Growth ed Report 20:00 After 3 Days [facility] No complet l 013 Growth ed Report 20:00 After 48 Hours [facility] No complet l 013 Growth ed Report 20:00 After 24 Hours [facility] Culture complet l 013 In ed Report 20:00 Progres s [facility] CUL RES complet l 013 ed Report 20:00 (Final) [facility] Status: complet l 013 Final ed Report 20:00 Last Updated : 013 19:26 [facility] Collect complet l 013 ed: ed Report 20:00 013 20:00 Clin[facility] Specime complet l 013 n: ed Report 20:00 BLOOD TROPONIN I,JERI (IN HOUSE) (01-30-2013 20:00) [place]rop[place] 0.12 0.00-0. Above complet n I 013 ng/mL 10 high ed 20:00 normal CKMB (01-30-2013 20:00) CKMB% CKMB% 0.0-4.0 Normal complet 013 NOT ed 20:00 INDICAT ED % MMB 1.30 0.00-5. Normal complet 013 ng/mL 00 ed 20:00 CK 69 U/L 26-192 Normal complet 013 ed 20:00 BNP (NT-proBNP) (01-30-2013 20:00) NT-proB 1720.9 0.0-900 Above complet [employer] 013 pg/mL .0 high ed 20:00 normal COMPREHENSIVE METABOLIC PANEL (01-30-2013 20:00) GLOMERU 44 complet LAR 013 mL/min/ ed FILTRAT 20:00 1.73 m2 ION RATE [place] n GLOMERU 36 complet LAR 013 mL/min/ ed FILTRAT 20:00 1.73 m2 ION RATE Anion 9.4 10.0-20 Below complet Gap 013 mEq/L .0 low ed 20:00 normal A/G 0.9 1.0-2.0 Below complet Ratio 013 low ed 20:00 normal Glucose 181 70-99 Above complet 013 mg/dL high ed 20:00 normal BUN/Cre 13.3 6.0-20. Normal complet at 013 0 ed Ratio 20:00 Bilirub 0.41 0.20-1. Normal complet in, 013 mg/dL 00 ed Total 20:00 AST 14 U/L 15-37 Below complet 013 low ed 20:00 normal ALT 28 U/L 30-65 Below complet 013 low ed 20:00 normal Alk 04-22-2 106 U/L 50-136 Normal complet Phos 013 ed 20:00 Albumin 3.4 3.4-5.0 Normal complet 013 gm/dL ed 20:00 Total 7.1 6.4-8.2 Normal complet Protein 013 gm/dL ed 20:00 Calcium 8.9 8.5-10. Normal complet 013 mg/dL 1 ed 20:00 CO2 29.4 22-29 Above complet 013 mmol/L high ed 20:00 normal Chlorid 102 98-107 Normal complet e 013 mEq/L ed 20:00 Potassi 4.6 3.5-5.1 Normal complet um 013 mEq/L ed 20:00 Sodium 136 136-145 Normal complet 013 mEq/L ed 20:00 Creatin 1.5 0.6-1.3 Above complet ine 013 mg/dL high ed 20:00 normal BUN 20 7-18 Above complet 013 mg/dL high ed 20:00 normal CBC W/DIFF (01-30-2013 20:00) MPV 9.5 fl 6.6-9.3 Above complet 013 high ed 20:00 normal Lymphoc 17.9 % 20.0-35 Below complet ytes % 013 .0 low ed 20:00 normal RDW 15.7 % 12.0-15 Above complet 013 .0 high ed 20:00 normal MCV 86.7 fl 80.0-10 Normal complet 013 0.0 ed 20:00 MCHC 32.0 32.0-36 Normal complet 013 gm/dL .0 ed 20:00 MCH 27.7 pg 27.0-32 Normal complet 013 .0 ed 20:00 Platele 234 X 140-450 Normal complet t 013 10 ed 20:00 Hematoc 29.8 % 36.0-47 Below complet rit 013 .0 low ed 20:00 normal Hemoglo 9.5 12.0-15 Below complet bin 013 gm/dL .0 low ed 20:00 normal RBC 04-22-2 3.44 X 4.20-5. Below complet 013 10 40 low ed 20:00 normal WBC -22-2 9.2 X 3.5-9.6 Normal complet 013 10 ed 20:00 Lymphoc -22-2 1.6 X 0.7-4.3 Normal complet yte 013 10 ed Count 20:00 Basophi -22-2 0.1 X 0.0-0.1 Normal complet l Count 013 10 ed 20:00 Eosinop -22-2 0.2 X 0.0-0.8 Normal complet hil 013 10 ed Count 20:00 Monocyt -22-2 0.4 X 0.2-1.2 Normal complet e Count 013 10 ed 20:00 Neutrop -22-2 6.8 X 1.5-7.1 Normal complet hil 013 10 ed Count 20:00 Basophi -22-2 1.1 % 0.0-2.0 Normal complet ls % 013 ed 20:00 Eosinop -22-2 2.5 % 0.0-4.0 Normal complet hils % 013 ed 20:00 Monocyt -22-2 4.5 % 0.0-13. Normal complet es % 013 0 ed 20:00 Neutrop -22-2 74.0 % 50.0-70 Above complet hils % 013 .0 high ed 20:00 normal
--- OUTSIDE RECORDS SUMMARY | 2017-08-02 00:22 | External Medical Summary Rpt | CCD ---
Author Author , THIERNO Organization THIERNO Address Unknown Phone [email or web address] Purpose Continuity of Care Document - 01-30-2013 through 2016 Results Labs Lab Lab Date Result Refere Interp Status Commen Order Detail nces retati t Range on BNP (NT-proBNP) (06-16-2013 05:56) NT-proB 2837.0 0.0-900 Above complet WIRE COATING OPERATOR METAL 013 pg/mL .0 high ed 05:56 normal [...] (06-15-2013 04:15) NT-proB 3455.5 0.0-900 Above complet WIRE COATING OPERATOR METAL 013 pg/mL .0 high ed 04:15 normal [...] (06-14-2013 14:45) NT-proB 3824.7 0.0-900 Above complet WIRE COATING OPERATOR METAL 013 pg/mL .0 high ed 14:45 normal [...] 05:15) NT-proB 06-14-2 3723.4 0.0-900 Above complet WIRE COATING OPERATOR METAL 013 pg/mL .0 high ed 05:15 normal [...] 07:35) NT-proB 06-13-2 3824.6 0.0-900 Above complet WIRE COATING OPERATOR METAL 013 pg/mL .0 high ed 07:35 normal [...] 10:30) NT-proB 06-12-2 4644.9 0.0-900 Above complet WIRE COATING OPERATOR METAL 013 pg/mL .0 high ed 10:30 normal [...] Above complet c 013 .022 high ed Winn 10:30 normal Appeara CLEAR CLEAR Normal complet [...] (06-11-2013 09:58) NT-proB 1351.6 0.0-900 Above complet WIRE COATING OPERATOR METAL 013 pg/mL .0 high ed 09:58 normal [...] Below complet c 013 .022 low ed Winn 22:40 normal Appeara CLEAR CLEAR Normal complet nce 013 ed 22:40 PT (01-30-2013 21:00) INR 1.02 0.90-1. Normal complet 013 22 ed 21:00 Prothro 11.0 10.0-11 Normal complet mbin 013 seconds .8 ed Time 21:00 CULTURE, BLOOD (01-30-2013 20:02[facility]13 Growth ed Report 20:02 After 5 Days [facility] No complet l 013 Growth ed Report 20:02 After 4 Days [facility] No complet l 013 Growth ed Report 20:02 After 3 Days [facility] No complet l 013 Growth ed Report 20:02 After 48 Hours [facility] No complet l 013 Growth ed Report 20:[address] [facility] Culture complet l 013 In ed Report 20:[address] [facility] CUL RES complet l 013 ed Report 20:02 (Final) [facility] Status: complet l 013 Final ed Report 20:02 Last Updated : 013 19:26 [facility] Collect complet l 013 ed: ed Report 20:02 013 20:02 [facility] Specime complet l 013 n: ed Report 20:02 BLOOD CULTURE, BLOOD (01-30-2013 20:00) [facility] No complet l 013 Growth ed Report 20:00 After 5 Days [facility] No complet l 013 Growth ed Report 20:00 After 4 Days [facility] No complet l 013 Growth ed Report 20:00 After 3 Days [facility] No complet l 013 Growth ed Report 20:00 After 48 Hours [facility] No complet l 013 Growth ed Report 20:00 After 24 Hours [facility] Culture complet l 013 In ed Report 20:[address] [facility] CUL RES complet l 013 ed Report 20:00 (Final) [facility] Status: complet l 013 Final ed Report [...] (01-30-2013 20:00) NT-proB 1720.9 0.0-900 Above complet WIRE COATING OPERATOR METAL 013 pg/mL .0 high ed 20:00 normal [...]
--- OUTSIDE RECORDS SUMMARY | 2017-08-02 00:24 | External Medical Summary Rpt | CCD ---
Demographics Preferred Language Tristanian Marital Status Unknown Scientology Affiliation Unknown Race Unknown Ethnic Group Unknown Author Author , SIA PA Address Unknown Phone Immunization Unable to retrieve immunization data due to connection failure with Immunization Registry. Please try again later.
--- OUTSIDE RECORDS SUMMARY | 2017-08-02 00:24 | External Medical Summary Rpt | CCD ---
Demographics Preferred Language Central African Marital Status Unknown Faith Affiliation Unknown Race Unknown Ethnic Group Unknown Author Author , SIA PA Address Unknown Phone Immunization Unable to retrieve immunization data due to connection failure with Immunization Registry. Please try again later.
[2017-08-02 00:51] LABS: LYMPH # 1.6 K/mm3 (0.7-4.5)
[2017-08-02 00:52] LABS: HEMOGLOBIN 11.2 g/dL (12.2-16.2)
--- NOTE | 2017-08-02 01:33 | Emergency Room Report ---
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 N Clinical Suspician of Infection? N Mental Status: 1 - Regular (Normal Baseline) Sepsis Risk:Low Sepsis Risk Have you (or family members/close friends) recently traveled outside the [place]? N If Yes, where/when: Have you had exposure to infectious disease within the past month? N TB? Other? Specify: Source patient, RN notes reviewed, family, RN/MD Exam Limitations no limitations Comment This is a 76-year-old lady brought to the emergency room by ambulance after sustaining multiple falls at home, throughout the day. The patient is a history of diabetes, end-stage renal dialysis, on hemodialysis, on Wednesday- Wednesday-Wednesday. Patient has missed the last 2 hemodialysis sessions, namely on Wednesday and Wednesday. When asked why she has skewed the dialysis the patient advised that "I'm no longer needed them". Her son flew in from [place] a week ago, trying to convince her to resume her dialysis, without any success. Patient denies any suicidal or homicidal ideation , does not have any hallucinations or psychosis. ALLERGIES Coded Allergies: No Known Allergies (11/23/16) Home Medications Active Scripts SULFAMETHOXAZOLE W/TRIMETHOPRI (Bactrim Ds Tab) 1 TABLET PO DAILY #7 TAB Prov: 04/29/17 Reported Medications Acetaminophen 500 MG PO TID #2 ALBUTEROL (Proventil Hfa Inhaler) 1-2 PUFF IH Q4-6H PRN ALBUTEROL (Albuterol 0.083% Neb) 2.5 MG INH Q6HP PRN SOA, WHEEZING ASPIRIN (Aspirin) 81 MG PO DAILY DILTIAZEM HCL (Diltiazem 24HR ER) 180 MG PO BID Docusate Sodium (Stool Softener) 100 MG PO BID Fluoxetine Hcl (Fluoxetine) 40 MG PO DAILY INSULIN ASPART (Novolog) 100 SC QID INSULIN ASPART (Novolog) 5 UNITS SC TID Insulin Glargine (Lantus Insulin Vial) 46 UNITS SC DAILY LEVOTHYROXINE SOD (Synthroid) 50 MCG PO DAILY NITROGLYCERIN (Nitrostat) 0.4 MG SL [id number] PRN ANGINA Ondansetron (Zuplenz) 4 MG MM Q4 Oxycodone 5MG/[id number] (Oxycodone-Acetaminophen 5-325) 1-2 TAB PO Q4HP PRN PAIN #2 Pantoprazole Sodium (Pantoprazole) 40 MG PO DAILY PRAVASTATIN SODIUM (Pravastatin Sodium) 40 MG PO QHS POLYETHYLENE GLYCOL (Miralax) 17 GM PO DAILY History Medical History General CAD? No Angina: No ME: No Hypertension? Yes Hyperlipidemia? Yes CHF? Yes DVT? No PE? No COPD? Yes Asthma? No Anemia? No GERD? No Gastric ulcers? No GI Bleed? No Hernia? No Thyroid Problems? Yes Hypothyroidism? Yes CVA? No Seizures? No Diabetes? Yes Insulin Dependent: Yes Insulin Pump: No Home FSBS? Yes Renal Insuffiency? Yes End Stage Renal Disease? Yes UTI? No Stones? No BPH? No GB Disease: No Nephritic Syndrome? No Asplenia? No Hepatitis? No Sickle Cell Disease? No Arthritis? No Migraines? No Cataracts? No Glaucoma? No MRSA? No HIV? No TB? No Anxiety? No Depression? No Cancer? No More? No Immunization Hx DT/Tetanus Refuses Flu 2015-FSN Pneumonia Received In Past Surgical Hx Previous Surgery?Y GALLBLADDER Family History Family Hx Diabetes Yes CAD No Hypertension Yes Hyperlipidemia No Cancer Yes TB No Social History Smoking Hx Smoker: Former Smoker Tobacco: No Type Cigarettes Alcohol Alcohol: No Review of Systems All Other Systems Reviewed and Negative Comment multiple falls today Physical Exam Vital Signs Vital Signs Date Time Temp Pulse Resp B/P Pulse O2 O2 Flow FiO2 Ox Delivery Rate 08/02 350 97.9 70 18 125/85 08/02 034 2 08/02 342 70 08/02 034 97 OXYGEN 08/02 0330 97.6 70 18 141/64 100 OXYGEN 2 08/02 0326 97.9 70 18 125/85 97 08/02 0247 70 18 125/85 97 08/02 0128 71 16 137/59 97 08/01 2355 97.9 75 20 139/70 96 2 General Appearance normal appearance, WD/WN, no apparent distress Eye Exam - bilateral eye normal exam, bilateral eye PERRL, bilateral eye EOMI Neck normal inspection, non-tender, supple, full range of motion Respiratory Status Yes: trachea midline, chest symmetrical, non tender chest. No: respiratory distress. Lung Sounds bilateral: normal breath sounds, lungs clear. 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 No Comment 02:00am - patient reevaluated, has unsteady gait, unable to stand and walk. Plan is to evaluate the patient while in patient. I have discussed her care directly with family as well as her, and she continues to refuse hemodialysis. Family would like to obtain DPOA over her. 02:04am-case discussed with Dr. Manzo covering for Dr. Reynolds, due for unassigned service. Dr. Verduzco advised of patient's presentation findings, albuterol management and admission. Care transferred to Dr. Verduzco/Dr. Reynolds at this time. I'll write temporary admission orders per hospital protocol. Upon patient's arrival to the floor the unit nurse will contact PCP in order to obtain full inpatient admission orders. Results/Orders Laboratory Tests 08/02/17 0045: Sodium 130 L, Potassium 5.5 H, Chloride 95 L, Carbon Dioxide 28, BUN 42 H, Creatinine 3.4 H, Estimated Creat Clear 19 L, Estimated GFR (MDRD) 13 *L, Glucose 214 H, Calcium 9.0, Total Bilirubin 0.4, AST 13 L, ALT 11 L, Alkaline Phosphatase 187 H, Creatine Kinase 20 L, CK-MB (CK-2) Rel Index 3.5, CK and CKMB Interp 0.7, Troponin I 0.04, Total Protein 6.9, Albumin 2.5 L, Globulin 4.4 H, Albumin/Globulin Ratio 0.6 L, Amylase 19 L, Lipase 74, TSH 2.92, Free T4 Index 8.1, Thyroxine (T4) 9.0, T3 Uptake 36, WBC 9.5, RBC 3.73 L, Hgb 11.2 L, Hct 35.0 L, MCV 93.8, RDW 16.6, Plt Count 307, MPV 8.0, Gran % 73.4, Gran # 7.0, Lymphocytes % 17.0, Monocytes % 3.7, Eosinophils % 5.0, Basophils % 0.9, Lymphocytes # 1.6, Monocytes # 0.4, Eosinophils # 0.5 H, Basophils # 0.1, PUBS MCHC 32.1, MCH 30.1 08/02/1727: TSH Cancelled, Free T4 Index Cancelled, Thyroxine (T4) Cancelled, T3 Uptake Cancelled 08/02/1727: Creatine Kinase Cancelled, CK-MB (CK-2) Rel Index Cancelled, CK and CKMB Interp Cancelled, Troponin I Cancelled 08/02/1727: Amylase Cancelled, Lipase Cancelled Current Medication Orders Sig/Kurt Start time Last Medication Dose Route Stop Time Status Admin Influenza Virus 0.5 ML PRN PRN 08/02 0245 UNV Vaccine Quadrival IM Sodium Polystyrene 30 GM ONCE ONE 08/025 DC 08/02 Sulfonate PO 08/02 216 0507 Sodium Chloride 10 ML PRN PRN 08/02 0030 AC IV 08/03 0028 Orders Procedure Date/time Status DIET-2000 CALORIE ADA 08/02 B Active CARDIAC ENZYMES 08/02 1000 Active CBC WITH AUTO DIFF 08/02 0600 Complete CARDIAC ENZYMES 08/02 0400 Complete BASIC METABOLIC PROFILE 08/02 0400 Complete Decision to admit 08/02 0204 Active IV SALINE LOCK 08/02 0028 Active URINALYSIS/COMPLETE 08/02 0028 Active THYROID PANEL 2 (WITH TSH) 08/02 0004 Complete LIPASE 08/02 0004 Complete CBC WITH AUTO DIFF 08/02 0004 Complete CARDIAC ENZYMES 08/02 0004 Complete CHEM 12 PROFILE 08/02 0004 Complete AMYLASE 08/02 0004 Complete ADMIT PATIENT 08/02 UNK Active PULSE OXIMETRY REQUEST 08/02 UNK Active VITAL SIGNS 08/02 UNK Active MANAGER TALENT 08/02 UNK Active POM NURSE JACKIE ISIDRO ORDER 08/02 UNK Active CODE STATUS 08/02 UNK Active PATIENT ACTIVITY ORDER 08/02 UNK Active 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 of ischemic chgs, no ectopy, normal QRS, normal GA, no EKG for comparison, non-spec. ST/Twave chgs, ST elevation, ST depression, LBBB, RBBB, ectopy, abnormal Q waves Departure Departure Time of Disposition 0204 Disposition DC Home or Self Care(routine) Clinical Impression Primary Impression: Frequent falls Secondary Impressions: Acute on chronic renal failure Qualifiers: Acute renal failure type: unspecified Chronic kidney disease stage: unspecified stage Qualified Code: N17.9 - Acute kidney failure, unspecified Condition STABLE ED Critical Care Critical Care No at 0573
--- NOTE | 2017-08-02 01:33 | Emergency Room Report ---
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 N Clinical Suspician of Infection? N Mental Status: 1 - Regular (Normal Baseline) Sepsis Risk:Low Sepsis Risk Have you (or family members/close friends) recently traveled outside the [place]? N If Yes, where/when: Have you had exposure to infectious disease within the past month? N TB? Other? Specify: Source patient, RN notes reviewed, family, RN/MD Exam Limitations no limitations Comment This is a 76-year-old lady brought to the emergency room by ambulance after sustaining multiple falls at home, throughout the day. The patient is a history of diabetes, end-stage renal dialysis, on hemodialysis, on Wednesday- Wednesday-Wednesday. Patient has missed the last 2 hemodialysis sessions, namely on Wednesday and Wednesday. When asked why she has skewed the dialysis the patient advised that "I'm no longer needed them". Her son flew in from [place] a week ago, trying to convince her to resume her dialysis, without any success. Patient denies any suicidal or homicidal ideation , does not have any hallucinations or psychosis. ALLERGIES Coded Allergies: No Known Allergies (11/23/16) Home Medications Active Scripts SULFAMETHOXAZOLE W/TRIMETHOPRI (Bactrim Ds Tab) 1 TABLET PO DAILY #7 TAB Prov: 04/29/17 Reported Medications Acetaminophen 500 MG PO TID #2 ALBUTEROL (Proventil Hfa Inhaler) 1-2 PUFF IH Q4-6H PRN ALBUTEROL (Albuterol 0.083% Neb) 2.5 MG INH Q6HP PRN SOA, WHEEZING ASPIRIN (Aspirin) 81 MG PO DAILY DILTIAZEM HCL (Diltiazem 24HR ER) 180 MG PO BID Docusate Sodium (Stool Softener) 100 MG PO BID Fluoxetine Hcl (Fluoxetine) 40 MG PO DAILY INSULIN ASPART (Novolog) 100 SC QID INSULIN ASPART (Novolog) 5 UNITS SC TID Insulin Glargine (Lantus Insulin Vial) 46 UNITS SC DAILY LEVOTHYROXINE SOD (Synthroid) 50 MCG PO DAILY NITROGLYCERIN (Nitrostat) 0.4 MG SL [id number] PRN ANGINA Ondansetron (Zuplenz) 4 MG MM Q4 Oxycodone 5MG/[id number] (Oxycodone-Acetaminophen 5-325) 1-2 TAB PO Q4HP PRN PAIN #2 Pantoprazole Sodium (Pantoprazole) 40 MG PO DAILY PRAVASTATIN SODIUM (Pravastatin Sodium) 40 MG PO QHS POLYETHYLENE GLYCOL (Miralax) 17 GM PO DAILY History Medical History General CAD? No Angina: No AR: No Hypertension? Yes Hyperlipidemia? Yes CHF? Yes DVT? No PE? No COPD? Yes Asthma? No Anemia? No GERD? No Gastric ulcers? No GI Bleed? No Hernia? No Thyroid Problems? Yes Hypothyroidism? Yes CVA? No Seizures? No Diabetes? Yes Insulin Dependent: Yes Insulin Pump: No Home FSBS? Yes Renal Insuffiency? Yes End Stage Renal Disease? Yes UTI? No Stones? No BPH? No GB Disease: No Nephritic Syndrome? No Asplenia? No Hepatitis? No Sickle Cell Disease? No Arthritis? No Migraines? No Cataracts? No Glaucoma? No MRSA? No HIV? No TB? No Anxiety? No Depression? No Cancer? No More? No Immunization Hx DT/Tetanus Refuses Flu 2015-FSN Pneumonia Received In Past Surgical Hx Previous Surgery?Y GALLBLADDER Family History Family Hx Diabetes Yes CAD No Hypertension Yes Hyperlipidemia No Cancer Yes TB No Social History Smoking Hx Smoker: Former Smoker Tobacco: No Type Cigarettes Alcohol Alcohol: No Review of Systems All Other Systems Reviewed and Negative Comment multiple falls today Physical Exam Vital Signs Vital Signs Date Time Temp Pulse Resp B/P Pulse O2 O2 Flow FiO2 Ox Delivery Rate 08/02 350 97.9 70 18 125/85 08/02 034 2 08/02 342 70 08/02 034 97 OXYGEN 08/02 0330 97.6 70 18 141/64 100 OXYGEN 2 08/02 0326 97.9 70 18 125/85 97 08/02 0247 70 18 125/85 97 08/02 0128 71 16 137/59 97 08/01 2355 97.9 75 20 139/70 96 2 General Appearance normal appearance, WD/WN, no apparent distress Eye Exam - bilateral eye normal exam, bilateral eye PERRL, bilateral eye EOMI Neck normal inspection, non-tender, supple, full range of motion Respiratory Status Yes: trachea midline, chest symmetrical, non tender chest. No: respiratory distress. Lung Sounds bilateral: normal breath sounds, lungs clear. 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 No Comment 02:00am - patient reevaluated, has unsteady gait, unable to stand and walk. Plan is to evaluate the patient while in patient. I have discussed her care directly with family as well as her, and she continues to refuse hemodialysis. Family would like to obtain DPOA over her. 02:04am-case discussed with Dr. Manzo covering for Dr. Reynolds, due for unassigned service. Dr. Verduzco advised of patient's presentation findings, albuterol management and admission. Care transferred to Dr. Verduzco/Dr. Reynolds at this time. I'll write temporary admission orders per hospital protocol. Upon patient's arrival to the floor the unit nurse will contact PCP in order to obtain full inpatient admission orders. Results/Orders Laboratory Tests 08/02/17 0045: Sodium 130 L, Potassium 5.5 H, Chloride 95 L, Carbon Dioxide 28, BUN 42 H, Creatinine 3.4 H, Estimated Creat Clear 19 L, Estimated GFR (MDRD) 13 *L, Glucose 214 H, Calcium 9.0, Total Bilirubin 0.4, AST 13 L, ALT 11 L, Alkaline Phosphatase 187 H, Creatine Kinase 20 L, CK-MB (CK-2) Rel Index 3.5, CK and CKMB Interp 0.7, Troponin I 0.04, Total Protein 6.9, Albumin 2.5 L, Globulin 4.4 H, Albumin/Globulin Ratio 0.6 L, Amylase 19 L, Lipase 74, TSH 2.92, Free T4 Index 8.1, Thyroxine (T4) 9.0, T3 Uptake 36, WBC 9.5, RBC 3.73 L, Hgb 11.2 L, Hct 35.0 L, MCV 93.8, RDW 16.6, Plt Count 307, MPV 8.0, Gran % 73.4, Gran # 7.0, Lymphocytes % 17.0, Monocytes % 3.7, Eosinophils % 5.0, Basophils % 0.9, Lymphocytes # 1.6, Monocytes # 0.4, Eosinophils # 0.5 H, Basophils # 0.1, PUBS MCHC 32.1, MCH 30.1 08/02/1727: TSH Cancelled, Free T4 Index Cancelled, Thyroxine (T4) Cancelled, T3 Uptake Cancelled 08/02/1727: Creatine Kinase Cancelled, CK-MB (CK-2) Rel Index Cancelled, CK and CKMB Interp Cancelled, Troponin I Cancelled 08/02/1727: Amylase Cancelled, Lipase Cancelled Current Medication Orders Sig/Kurt Start time Last Medication Dose Route Stop Time Status Admin Influenza Virus 0.5 ML PRN PRN 08/02 0245 UNV Vaccine Quadrival IM Sodium Polystyrene 30 GM ONCE ONE 08/025 DC 08/02 Sulfonate PO 08/02 216 0507 Sodium Chloride 10 ML PRN PRN 08/02 0030 AC IV 08/03 0028 Orders Procedure Date/time Status DIET-2000 CALORIE ADA 08/02 B Active CARDIAC ENZYMES 08/02 1000 Active CBC WITH AUTO DIFF 08/02 0600 Complete CARDIAC ENZYMES 08/02 0400 Complete BASIC METABOLIC PROFILE 08/02 0400 Complete Decision to admit 08/02 0204 Active IV SALINE LOCK 08/02 0028 Active URINALYSIS/COMPLETE 08/02 0028 Active THYROID PANEL 2 (WITH TSH) 08/02 0004 Complete LIPASE 08/02 0004 Complete CBC WITH AUTO DIFF 08/02 0004 Complete CARDIAC ENZYMES 08/02 0004 Complete CHEM 12 PROFILE 08/02 0004 Complete AMYLASE 08/02 0004 Complete ADMIT PATIENT 08/02 UNK Active PULSE OXIMETRY REQUEST 08/02 UNK Active VITAL SIGNS 08/02 UNK Active 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 of ischemic chgs, no ectopy, normal QRS, normal [place], no EKG for comparison, non-spec. ST/Twave chgs, ST elevation, ST depression, LBBB, RBBB, ectopy, abnormal Q waves Departure Departure Time of Disposition 0204 Disposition DC Home or Self Care(routine) Clinical Impression Primary Impression: Frequent falls Secondary Impressions: Acute on chronic renal failure Qualifiers: Acute renal failure type: unspecified Chronic kidney disease stage: unspecified stage Qualified Code: N17.9 - Acute kidney failure, unspecified Condition STABLE ED Critical Care Critical Care No at 0536
[2017-08-02 01:35] LABS: FREE THYROXIN INDEX 8.1 ug/dl (5.93-13.13)
--- OUTSIDE RECORDS SUMMARY | 2017-08-02 02:27 | External Medical Summary Rpt | CCD ---
Author Author , THIERNO Organization [facility]IER[facility] Address Unknown Phone [email or web address] Purpose Continuity of Care Document - 01-30-2013 through 2016 Results Labs Lab Lab Date Result Refere Interp Status Commen Order Detail nces retati t Range on Amylase ser/plas (08-02-2017 00:45) Amylase 08-02-2 = 19 25-115 complet 017 U/L ed ser/mat 00:45 s Cardiac enzymes (08-02-2017 00:45) Serum 08-02-2 = 3.5 0-4.0 complet or 017 U/L ed plasma 00:45 creatin e kinase MB (CK-M Serum = 0.7 0.0-3.6 complet or 017 ng/mL ed plasma 00:45 creatin e kinase MB measu Serum 2 = 20 26-192 complet or 017 U/L ed plasma 00:45 creatin e kinase measure m Serum 08-02-2 = 0.04 0.00-0. complet or 017 ng/mL 06 ed plasma 00:45 troponi n i.cardi ac measu Comprehensive metabolic panel (08-02-2017 00:45) Serum 08-02-2 = 0.6 1.1-1.8 complet or 017 ed plasma 00:45 albumin /globul in mass ra Serum 08-02-2 = 2.5 3.4-5.0 complet or 017 gm/dL ed plasma 00:45 albumin measure ment (mas Serum 08-02- = 187 46-116 complet or 017 U/L ed plasma 00:45 alkalin e phospha tase rajni Serum 2 = 0.4 0.2-1.0 complet or 017 mg/dL ed plasma 00:45 total bilirub in measure m Serum 08-02-2 = 42 7-18 complet or 017 mg/dL ed plasma 00:45 urea nitroge n measure men Serum 2 = 9.0 8.5-10. complet or 017 mg/dL 1 ed plasma 00:45 calcium measure ment (mas Serum 2 = 95 98-107 complet or 017 mmoL/L ed plasma 00:45 chlorid e measure ment (mo Carbon = 28 21.0-32 complet dioxide 017 mmoL/L .0 ed 00:45 measure ment Serum 2 = 3.4 0.55-1. complet or 017 mg/dL 02 ed plasma 00:45 creatin ine measure ment ( Estimat = 19 50-200 complet ion of 017 ML/MIN ed creatin 00:45 ine renal clearan ce Estimat = 13 59- complet ed 017 ML/MIN ed glomeru 00:45 lar filtrat ion rate (GF Comment: REFERENCE RANGE: >60 ML/MIN/1.73 SQUARE METERS Comment: If this patient is -[place], then multiply the Comment: result by 1.210. Serum = 4.4 1.3-3.2 complet globuli 017 gm/dL ed n 00:45 measure ment (mass/v olume) Serum = 214 74-106 complet or 017 mg/dL ed plasma 00:45 glucose measure ment (mas Serum = 5.5 3.5-5.1 complet potassi 017 mmoL/L ed um 00:45 measure ment Serum 08-02-2 = 130 136-145 complet sodium 017 mmoL/L ed measure 00:45 ment Serum 08-02-2 = 13 15-37 complet or 017 U/L ed plasma 00:45 asparta te aminotr ansfera ALT = 11 12-78 complet (SGPT) 017 U/L ed ser/mat 00:45 s Protein = 6.9 6.4-8.2 complet total 017 gm/dL ed ser/mat 00:45 s Lipase measurement (08-02-2017 00:45) Lipase 08-02- = 74 73-393 complet measure 017 U/L ed ment 00:45 THYROID PANEL 2 (08-02-2017 00:45) Serum 08-02-2 = 8.1 5.93-13 complet or 017 ug/dl .13 ed plasma 00:45 thyroxi ne (T4) free inde T3 10-23-2 = 36 % 31-39 complet uptake 017 ed 00:45 Thyroxi 08-02-2 = 9.0 4.7-13. complet ne 017 ug/dl 3 ed 00:45 Serum 08-02-2 = 2.92 0.358-3 complet or 017 uIU/ml .740 ed plasma 00:45 thyroid stimula ting horm BNP (NT-proBNP) (06-16-2013 05:56) NT-proB 2837.0 0.0-900 Above complet FHA UNDERWRITER 013 pg/mL .0 high ed 05:56 normal [...] FILTRAT 05:56 1.73 m2 ION RATE GLOMERU 06-2 35 complet LAR 013 mL/min/ ed FILTRAT 05:56 1.73 m2 ION RATE Sheeba n Glucose 171 70-99 Above complet 013 mg/dL high ed 05:56 normal BUN 41 7-18 Above complet 013 mg/dL high ed 05:56 normal Creatin 1.8 0.6-1.3 Above complet ine 013 mg/dL high ed 05:56 normal Sodium 09-06-2 138 136-145 Normal complet 013 mEq/L ed 05:56 Potassi 3.9 3.5-5.1 Normal complet um 013 mEq/L ed 05:56 Chlorid 98 98-107 Normal complet e 013 mEq/L ed 05:56 CO2 34.0 22-29 Above complet 013 mmol/L high ed 05:56 normal Calcium 8.8 8.5-10. Normal complet 013 mg/dL 1 ed 05:56 BNP (NT-proBNP) (06-15-2013 04:15) NT-proB 3455.5 0.0-900 Above complet FHA UNDERWRITER 013 pg/mL .0 high ed 04:15 normal CBC W/DIFF (06-15-2013 04:15) Lymphoc 06-15-2 1.6 X 0.7-4.3 Normal complet yte 013 10 ed Count 04:15 Basophi 06-15-2 0.0 X 0.0-0.1 Normal complet l Count 013 10 ed 04:15 Eosinop 05-2 0.1 X 0.0-0.8 Normal complet hil 013 10 ed Count 04:15 Monocyt 06-15-2 0.6 X 0.2-1.2 Normal complet e Count 013 10 ed 04:15 Neutrop 06-15-2 9.3 X 1.5-7.1 Above complet hil 013 10 high ed Count 04:15 normal Basophi 05-2 0.2 % 0.0-2.0 Normal complet ls % 013 ed 04:15 Eosinop -05-2 0.6 % 0.0-4.0 Normal complet hils % 013 ed 04:15 Monocyt 05-2 5.3 % 0.0-13. Normal complet es % 013 0 ed 04:15 Lymphoc -05-2 14.0 % 20.0-35 Below complet ytes % 013 .0 low ed 04:15 normal Neutrop -05-2 79.9 % 50.0-70 Above complet hils % 013 .0 high ed 04:15 normal MPV 05-2 9.3 fl 6.6-9.3 Normal complet 013 ed 04:15 RDW 05-2 17.8 % 12.0-15 Above complet 013 .0 high ed 04:15 normal MCV 05-2 80.2 fl 80.0-10 Normal complet 013 0.0 ed 04:15 MCHC 06-15-2 33.3 32.0-36 Normal complet 013 gm/dL .0 ed 04:15 MCH 06-15-2 26.7 pg 27.0-32 Below complet 013 .0 low ed 04:15 normal Platele 06-15-2 196 X 140-450 Normal complet t 013 10 ed 04:15 Hematoc 06-15-2 30.6 % 36.0-47 Below complet rit 013 .0 low ed 04:15 normal Hemoglo 06-15-2 10.2 12.0-15 Below complet bin 013 gm/dL .0 low ed 04:15 normal RBC 3.81 X 4.20-5. Below complet 013 10 40 low ed 04:15 normal WBC 11.7 X 3.5-9.6 Above complet 013 10 high ed 04:15 normal TROPONIN I,JERI (IN HOUSE) (06-15-2013 04:15) Troponi 0.51 0.00-0. Above complet n I 013 ng/mL 10 high ed 04:15 normal MAGNESIUM,SERUM (06-15-2013 04:15) Magnesi 2.0 1.8-2.4 Normal complet um 013 mg/dL ed 04:15 BASIC METABOLIC PANEL (06-15-2013 04:15) Glucose 108 70-99 Above complet 013 mg/dL high ed 04:15 normal BUN 41 7-18 Above complet 013 mg/dL high ed 04:15 normal Creatin 2 1.8 0.6-1.3 Above complet ine 013 mg/dL high ed 04:15 normal Sodium 137 136-145 Normal complet 013 mEq/L ed 04:15 Potassi 3.8 3.5-5.1 Normal complet um 013 mEq/L ed 04:15 Chlorid 100 98-107 Normal complet e 013 mEq/L ed 04:15 CO2 32.4 22-29 Above complet 013 mmol/L high ed 04:15 normal Calcium 8.9 8.5-10. Normal complet 013 mg/dL 1 ed 04:15 BUN/Cre 22.8 6.0-20. Above complet at 013 0 high ed Ratio 04:15 normal Anion 8.5 10.0-20 Below complet Gap 013 mEq/L .0 low ed 04:15 normal GLOMERU 29 complet LAR 013 mL/min/ ed FILTRAT 04:15 1.73 m2 ION RATE GLOMERU 35 complet LAR 013 mL/min/ ed FILTRAT 04:15 1.73 m2 ION RATE Sheeba n PHOSPHORUS,SERUM (06-15-2013 04:15) Phospho 4.0 2.5-4.9 Normal complet amber 013 mg/dL ed 04:15 VANCOMYCIN TROUGH (06-14-2013 17:40) Vancomy 10.3 10.0-20 Normal complet jimenez 013 mcg/mL .0 ed Trough 17:40 BNP (NT-proBNP) (06-14-2013 14:45) NT-proB 3824.7 0.0-900 Above complet FHA UNDERWRITER 013 pg/mL .0 high ed 14:45 normal CPK TOTAL W/CKMB IF INDICATED (06-14-2013 14:45) CK 50 U/L 26-192 Normal complet 013 ed 14:45 TROPONIN I,JERI (IN HOUSE) (06-14-2013 14:45) Troponi 0.59 0.00-0. Above complet n [...] complet e 013 mEq/L ed 14:45 CO2 06-14-2 30.5 22-29 Above complet 013 mmol/L high ed 14:45 normal Calcium 06-14-2 8.5 8.5-10. Normal complet 013 mg/dL 1 ed 14:45 BUN/Cre 23.9 6.0-20. Above complet at 013 0 high ed Ratio 14:45 normal Anion 06-14-2 9.2 10.0-20 Below complet Gap 013 mEq/L .0 low ed 14:45 normal GLOMERU 06-14-2 29 complet LAR 013 mL/min/ ed FILTRAT 14:45 1.73 m2 ION RATE GLOMERU 06-14-2 35 complet LAR 013 mL/min/ ed FILTRAT 14:45 1.73 m2 ION RATE Sheeba n BASIC METABOLIC PANEL (06-14-2013 05:15) Sodium 06-14-2 135 136-145 Below complet 013 mEq/L low ed 05:15 normal GLOMERU 06-14- 38 complet LAR 013 mL/min/ ed FILTRAT 05:15 1.73 m2 ION RATE She[place] n Creatin 06-14-2 1.7 0.6-1.3 Above complet ine 013 mg/dL high ed 05:15 normal BUN 06-14-2 41 7-18 Above complet 013 mg/dL high ed 05:15 normal Glucose 06-14- 120 70-99 Above complet 013 mg/dL high ed 05:15 normal Potassi 2 4.4 3.5-5.1 Normal complet um 013 mEq/L ed 05:15 Chlorid 101 98-107 Normal complet e 013 mEq/L ed 05:15 CO2 2 29.7 22-29 Above complet 013 mmol/L high ed 05:15 normal Calcium 06-14-2 8.3 8.5-10. Below complet 013 mg/dL 1 low ed 05:15 normal BUN/Cre 2 24.1 6.0-20. Above complet at 013 0 high ed Ratio 05:15 normal Anion 06-14-2 8.2 10.0-20 Below complet Gap 013 mEq/L .0 low ed 05:15 normal GLOMERU 06-14-2 31 complet LAR 013 mL/min/ ed FILTRAT 05:15 1.73 m2 ION RATE CBC W/DIFF (06-14-2013 05:15) Lymphoc 09-04-2 1.6 X 0.7-4.3 Normal complet yte 013 10 ed Count 05:15 Basophi 09-04-2 0.0 X 0.0-0.1 Normal complet l Count 013 10 ed 05:15 Eosinop 09-04-2 0.0 X 0.0-0.8 Normal complet hil 013 10 ed Count 05:15 Monocyt 09-04-2 0.6 X 0.2-1.2 Normal complet e Count 013 10 ed 05:15 Neutrop 09-04-2 11.7 X 1.5-7.1 Above complet hil 013 10 high ed Count 05:15 normal Basophi 09-04-2 0.1 % 0.0-2.0 Normal complet ls % 013 ed 05:15 Eosinop 09-04-2 0.2 % 0.0-4.0 Normal complet hils % 013 ed 05:15 Monocyt 09-04-2 4.2 % 0.0-13. Normal complet es % 013 0 ed 05:15 Lymphoc 09-04-2 11.3 % 20.0-35 Below complet ytes % 013 .0 low ed 05:15 normal Neutrop 09-04-2 84.2 % 50.0-70 Above complet hils % 013 .0 high ed 05:15 normal MPV 09-04-2 9.1 fl 6.6-9.3 Normal complet 013 ed 05:15 RDW 09-04-2 18.2 % 12.0-15 Above complet 013 .0 high ed 05:15 normal MCV 09-04-2 82.6 fl 80.0-10 Normal complet 013 0.0 ed 05:15 MCHC 09-04-2 32.5 32.0-36 Normal complet 013 gm/dL .0 ed 05:15 MCH 09-04-2 26.9 pg 27.0-32 Below complet 013 .0 low ed 05:15 normal Platele 09-04-2 180 X 140-450 Normal complet t 013 10 ed 05:15 Hematoc 09-04-2 29.8 % 36.0-47 Below complet rit 013 .0 low ed 05:15 normal Hemoglo 09-04-2 9.7 12.0-15 Below complet bin 013 gm/dL .0 low ed 05:15 normal RBC 04-2 3.61 X 4.20-5. Below complet 013 10 40 low ed 05:15 normal WBC 04-2 13.9 X 3.5-9.6 Above complet 013 10 high ed 05:15 normal TROPONIN I,JERI (IN HOUSE) (06-14-2013 05:15) Troponi -04-2 0.66 0.00-0. Above complet n I 013 ng/mL 10 high ed 05:15 normal CPK (06-14-2013 05:15) CK 06-14-2 64 U/L 26-192 Normal complet 013 ed 05:15 BNP (NT-proBNP) (06-14-2013 05:15) NT-proB -04-2 3723.4 0.0-900 Above complet FHA UNDERWRITER 013 pg/mL .0 high ed 05:15 normal PTT (06-13-2013 09:00) PTT 06-13-2 94.4 22.7-31 Above complet 013 seconds .2 high ed 09:00 normal BNP (NT-proBNP) (06-13-2013 07:35) NT-proB --2 3824.6 0.0-900 Above complet FHA UNDERWRITER 013 pg/mL .0 high ed 07:35 normal TROPONIN IJERI (IN HOUSE) (06-13-2013 07:35) Troponi -03-2 0.98 0.00-0. Above complet n I 013 ng/mL 10 high ed 07:35 normal CPK (06-13-2013 07:35) CK 06-13-2 147 U/L 26-192 Normal complet 013 ed 07:35 LACTIC ACID (IN-HOUSE) (06-13-2013 03:20) Lactate --2 0.6 0.4-2.0 Normal complet 013 mmol/L ed 03:20 CBC W/DIFF (06-13-2013 03:20) Lymphoc -03-2 1.4 X 0.7-4.3 Normal complet yte 013 10 ed Count 03:20 Basophi -03-2 0.0 X 0.0-0.1 Normal complet l Count 013 10 ed 03:20 Eosinop -03-2 0.0 X 0.0-0.8 Normal complet hil 013 [...] normal COMPREHENSIVE METABOLIC PANEL (06-13-2013 03:20) GLOMERU 09-03-2 41 complet LAR 013 mL/min/ ed FILTRAT 03:20 1.73 m2 ION RATE Sheeba n GLOMERU 34 complet LAR 013 mL/min/ ed FILTRAT 03:20 1.73 m2 ION RATE Anion 14.5 10.0-20 Normal complet Gap 013 mEq/L .0 ed 03:20 A/G 1.0 1.0-2.0 Normal complet Ratio 013 ed 03:20 BUN/Cre 24.4 6.0-20. Above complet at 013 0 high ed Ratio 03:20 normal Bilirub 0.40 0.20-1. Normal complet in, 013 mg/dL 00 ed Total 03:20 AST 28 U/L 15-37 Normal complet 013 ed 03:20 ALT 19 U/L 30-65 Below complet 013 low ed 03:20 normal Alk 06-13- 90 U/L 50-136 Normal complet Phos 013 ed 03:20 Albumin 3.2 3.4-5.0 Below complet 013 gm/dL low ed 03:20 normal Total 6.4 6.4-8.2 Normal complet Protein 013 gm/dL ed 03:20 Calcium 8.5 8.5-10. Normal complet 013 mg/dL 1 ed 03:20 CO2 06-13-2 24.0 22-29 Normal complet 013 mmol/L ed 03:20 Chlorid 06-13- 101 98-107 Normal complet e 013 mEq/L ed 03:20 Potassi 4.9 3.5-5.1 Normal complet um 013 mEq/L ed 03:20 Sodium 135 136-145 Below complet 013 mEq/L low ed 03:20 normal Creatin 1.6 0.6-1.3 Above complet ine 013 mg/dL high ed 03:20 normal BUN 06-13- 39 7-18 Above complet 013 mg/dL high ed 03:20 normal Glucose 87 70-99 Normal complet 013 mg/dL ed 03:20 MAGNESIUM,SERUM (06-13-2013 03:20) Magnesi 06-13-2 2.2 1.8-2.4 Normal complet um 013 mg/dL [...] complet um 013 mEq/L ed 11:01 Sodium 09-02-2 135 136-145 Below complet 013 mEq/L low ed 11:01 normal Creatin 06-12-2 1.7 0.6-1.3 Above complet ine 013 mg/dL high ed 11:01 normal BUN 06-12-2 30 7-18 Above complet 013 mg/dL high ed 11:01 normal CBC W/DIFF (06-12-2013 11:01) Monocyt --2 2.6 % 0.0-13. Normal complet es % 013 0 ed 11:01 Lymphoc 06-12-2 3.6 % 20.0-35 Below complet ytes % 013 .0 low ed 11:01 normal Neutrop 06-12-2 93.6 % 50.0-70 Above complet hils % 013 .0 high ed 11:01 normal MPV 2 9.1 fl 6.6-9.3 Normal complet 013 ed 11:01 RDW 2 18.1 % 12.0-15 Above complet 013 .0 high ed 11:01 normal MCV 06-12-2 81.6 fl 80.0-10 Normal complet 013 0.0 ed 11:01 MCHC 2 32.2 32.0-36 Normal complet 013 gm/dL .0 ed 11:01 MCH 06-12-2 26.3 pg 27.0-32 Below complet 013 .0 low ed 11:01 normal Platele 06-12-2 229 X 140-450 Normal complet t 013 10 ed 11:01 Hematoc 06-12-2 30.9 % 36.0-47 Below complet rit 013 .0 low ed 11:01 normal Hemoglo 06-12-2 9.9 12.0-15 Below complet bin 013 gm/dL .0 low ed 11:01 normal RBC 06-12-2 3.78 X 4.20-5. Below complet 013 10 40 low ed 11:01 normal Lymphoc 06-12-2 0.7 X 0.7-4.3 Normal complet yte 013 10 ed Count 11:01 Basophi 06-12-2 0.0 X 0.0-0.1 Normal complet l Count 013 10 ed 11:01 Eosinop --2 0.0 X 0.0-0.8 Normal complet hil 013 10 ed Count 11:01 Monocyt -02-2 0.5 X 0.2-1.2 Normal complet e Count 013 10 ed 11:01 Neutrop 06-12-2 17.0 X 1.5-7.1 Above complet hil 013 10 high ed Count 11:01 normal Basophi --2 0.2 % 0.0-2.0 Normal complet ls % 013 ed 11:01 Eosinop 09-02-2 0.0 % 0.0-4.0 Normal complet hils % 013 ed 11:01 WBC 06-12-2 18.2 X 3.5-9.6 Above complet 013 10 high ed 11:01 normal PROCALCITONIN (06-12-2013 10:30) Procalc 06-12-2 <0.05 0.00-1. Normal complet itonin 013 ng/mL 90 ed 10:30 BNP (NT-proBNP) (06-12-2013 10:30) NT-proB 06-12-2 4644.9 0.0-900 Above complet FHA UNDERWRITER 013 pg/mL .0 high ed 10:30 normal TROPONIN I,JERI (IN HOUSE) (06-12-2013 10:30) Troponi 06-12-2 0.42 0.00-0. Above complet n I 013 ng/mL 10 high ed 10:30 normal CPK TOTAL W/CKMB IF INDICATED (06-12-2013 10:30) CK 06-12-2 93 U/L 26-192 Normal complet 013 ed 10:30 CPK (06-11-2013 22:10) CK 06-11-2 59 U/L 26-192 Normal complet 013 ed 22:10 TROPONIN I,JERI (IN HOUSE) (06-11-2013 22:10) Troponi 06-11-2 0.16 0.00-0. Above complet n I 013 ng/mL 10 high ed 22:10 normal CPK (06-11-2013 16:24) CK 06-11-2 49 U/L 26-192 Normal complet 013 ed 16:24 TROPONIN I,JERI (IN HOUSE) (06-11-2013 16:24) Troponi 06-11-2 0.18 0.00-0. Above complet n I 013 ng/mL 10 high ed 16:24 normal PT (06-11-2013 16:24) INR 06-11-2 1.06 0.90-1. Normal complet 013 22 ed [...] Above complet c 013 .022 high ed [place] 10:30 normal Appeara CLEAR CLEAR Normal complet [...] 26-192 Normal complet 013 ed 09:58 TROPONIN I,JEIR (IN HOUSE) (06-11-2013 09:58) Troponi 0.14 0.00-0. Above complet n I 013 ng/mL 10 high ed 09:58 normal BNP (NT-proBNP) (06-11-2013 09:58) NT-proB 1351.6 0.0-900 Above complet FHA UNDERWRITER 013 pg/mL .0 high ed 09:58 normal COMPREHENSIVE METABOLIC PANEL (06-11-2013 09:58) AST 15 U/L 15-37 Normal complet 013 ed 09:58 ALT 15 U/L 30-65 Below complet 013 low ed 09:58 normal Alk 116 U/L 50-136 Normal complet Phos 013 ed 09:58 Albumin 06-11- 3.5 3.4-5.0 Normal complet 013 gm/dL ed 09:58 Total 7.5 6.4-8.2 Normal complet Protein 013 gm/dL ed 09:58 Calcium 8.6 8.5-10. Normal complet 013 mg/dL 1 ed 09:58 CO2 09-01-2 30.1 22-29 Above complet 013 mmol/L high [...] Total 09:58 CULTURE, BLOOD (06-11-2013 09:58) [facility] No complet l 013 Growth ed Report 09:58 After 48 Hours [facility] No complet l 013 Growth ed Report 09:58 After 3 Days [facility] No complet l 013 Growth ed Report 09:58 After 4 Days [facility] No complet l 013 Growth ed Report 09:58 After 5 Days [facility] Specime complet l 013 n: ed Report 09:58 BLOOD [facility] Collect complet l 013 ed: ed Report 09:58 013 09:58 [facility] Status: complet l 013 Final ed Report 09:58 Last Updated : 09/06/2 013 08:02 [facility] CUL RES complet l 013 ed Report 09:58 (Final) [facility] No complet l 013 Growth ed Report 09:58 After 24 Hours CULTURE, URINE (01-30-2013 22:40) [facility] No complet [...] complet 013 E E ed 22:40 Bilirub NEGATIV NEGATIV Normal complet in 013 E E ed 22:40 Urobili norm 0-1 Normal complet nogen 013 mg/dL ed 22:40 Ketones NEGATIV NEGATIV Normal complet 013 E E ed 22:40 Glucose 01-30-2 NEGATIV NEGATIV Normal complet 013 E E ed 22:40 UA 1+ NEGATIV Abnorma complet Protein 013 E l ed 22:40 Nitrite 01-30-2 NEGATIV NEGATIV Normal complet 013 E E ed 22:40 Leukocy NEGATIV NEGATIV Normal complet te 013 E E ed 22:40 PH 01-30- 5.0 5.0-7.0 Normal complet 013 ed 22:40 Specifi 01-30-2 1.015 1.016-1 Below complet c 013 .022 low ed [place] 22:40 normal Appeara 01-30-2 CLEAR CLEAR Normal complet nce 013 ed 22:40 PT (01-30-2013 21:00) INR 01-30-2 1.02 0.90-1. Normal complet 013 22 ed 21:00 Prothro 11.0 10.0-11 Normal complet mbin 013 seconds .8 ed Time 21:00 CULTURE, BLOOD (01-30-2013 20:02) [facility] No complet l 013 Growth ed Report 20:02 After 5 Days [facility] No complet l 013 Growth ed Report 20:02 After 4 Days [facility] No complet l 013 Growth ed Report 20:02 After 3 Days [facility] No complet l 013 Growth ed Report 20:02 After 48 Hours [facility] No complet l 013 Growth ed Report 20:02 After 24 Hours [facility] Culture complet l 013 In ed Report 20:02 Progres s [facility] CUL RES complet l 013 ed Report 20:02 (Final) [facility] Status: complet l 013 Final ed Report 20:02 Last Updated : 013 19:26 [facility] Collect complet l 013 ed: ed Report 20:02 013 20:02 [facility] Specime complet l 013 n: ed Report 20:02 BLOOD TROPONIN I,JERI (IN HOUSE) (01-30-2013 20:00) [...] (01-30-2013 20:00) NT-proB 1720.9 0.0-900 Above complet FHA UNDERWRITER 013 pg/mL .0 high ed 20:00 normal [...] complet 013 low ed 20:00 normal Alk 106 U/L 50-136 Normal complet Phos 013 [...] complet 013 high ed 20:00 normal Lymphoc 04-22-2 17.9 % 20.0-35 Below complet ytes % 013 .0 low ed 20:00 normal RDW 01-30-2 15.7 % 12.0-15 Above complet 013 .0 high ed 20:00 normal MCV 01-30-2 86.7 fl 80.0-10 Normal complet 013 0.0 ed 20:00 MCHC 01-30-2 32.0 32.0-36 Normal complet 013 gm/dL .0 ed 20:00 MCH 01-30-2 27.7 pg 27.0-32 Normal complet 013 .0 ed 20:00 Platele 01-30-2 234 X 140-450 Normal complet t 013 10 ed 20:00 Hematoc 01-30-2 29.8 % 36.0-47 Below complet rit 013 .0 low ed 20:00 normal Hemoglo 01-30-2 9.5 12.0-15 Below complet bin 013 gm/dL .0 low ed 20:00 normal RBC 01-30-2 3.44 X 4.20-5. Below complet 013 10 40 low ed 20:00 normal WBC 01-30-2 9.2 X 3.5-9.6 Normal complet 013 10 ed 20:00 Lymphoc 01-30-2 1.6 X 0.7-4.3 Normal complet yte 013 10 ed Count 20:00 Basophi 01-30-2 0.1 X 0.0-0.1 Normal complet l Count 013 10 ed 20:00 Eosinop -22-2 0.2 X 0.0-0.8 Normal complet hil 013 10 ed Count 20:00 Monocyt -22-2 0.4 X 0.2-1.2 Normal complet e Count 013 10 ed 20:00 Neutrop 22-2 6.8 X 1.5-7.1 Normal complet hil 013 10 ed Count 20:00 Basophi 22-2 1.1 % 0.0-2.0 Normal complet ls % 013 ed 20:00 Eosinop -22-2 2.5 % 0.0-4.0 Normal complet hils % 013 ed 20:00 Monocyt -22-2 4.5 % 0.0-13. Normal complet es % 013 0 ed 20:00 Neutrop 01-30-2 74.0 % 50.0-70 Above complet hils % 013 .0 high ed 20:00 normal CULT[facility], [facility]LOOD [facility]01-30-2013 20:00[facility] Growth ed Report 20:00 After 5 Days [facility] No complet l 013 Growth ed Report 20:00 After 4 Days [facility] No complet l 013 Growth ed Report 20:00 After 3 Days [facility] No complet l 013 Growth ed Report 20:00 After 48 Hours [facility] No complet l 013 Growth ed Report 20:00 After 24 Hours [facility] Culture complet l 013 In ed Report 20:00 Progres s [facility] CUL RES complet l 013 ed Report 20:00 (Final) [facility] Status: complet l 013 Final ed Report 20:00 Last Updated : 013 19:26 [facility] Collect complet l 013 ed: ed Report 20:00 013 [facility] 013 n: ed Report 20:00 BLOOD
--- OUTSIDE RECORDS SUMMARY | 2017-08-02 02:27 | External Medical Summary Rpt | CCD ---
Author Author , THIERNO Organization [facility] Address Unknown Phone [email or web address] Purpose Continuity of Care Document - 01-30-2013 [...] SQUARE METERS Comment: If this patient is -[place], then multiply the Comment: result by 1.210. [...] (06-16-2013 05:56) NT-proB 2837.0 0.0-900 Above complet ASSISTANT PRODUCE MANAGER 013 pg/mL .0 high ed 05:56 normal [...] (06-15-2013 04:15) NT-proB 3455.5 0.0-900 Above complet ASSISTANT PRODUCE MANAGER 013 pg/mL .0 high ed 04:15 normal [...] (06-14-2013 14:45) NT-proB 3824.7 0.0-900 Above complet ASSISTANT PRODUCE MANAGER 013 pg/mL .0 high ed 14:45 normal [...] 05:15) NT-proB -04-2 3723.4 0.0-900 Above complet ASSISTANT PRODUCE MANAGER 013 pg/mL .0 high ed 05:15 normal PTT (06-13-2013 09:00) PTT 06-13-2 94.4 22.7-31 Above complet 013 seconds .2 high ed 09:00 normal BNP (NT-proBNP) (06-13-2013 07:35) NT-proB --2 3824.6 0.0-900 Above complet ASSISTANT PRODUCE MANAGER 013 pg/mL .0 high ed 07:35 normal [...] 10:30) NT-proB 06-12-2 4644.9 0.0-900 Above complet 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 013 pg/mL .0 high ed 10:30 normal [...] Above complet c 013 .022 high ed [place] 10:30 normal [facility] CLEAR CLEAR Normal complet [...] (06-11-2013 09:58) NT-proB 1351.6 0.0-900 Above complet ASSISTANT PRODUCE MANAGER 013 pg/mL .0 high ed 09:58 normal [...] Below complet c 013 .022 low ed [place] 22:40 normal [place] 01-30-2 CLEAR CLEAR Normal [...] (01-30-2013 20:00) NT-proB 1720.9 0.0-900 Above complet ASSISTANT PRODUCE MANAGER 013 pg/mL .0 high ed 20:00 normal [...] ed 20:00 normal CULTURE, BLOOD (01-30-2013 20:00) [facility] Growth ed Report 20:00 After 5 Days [facility] No complet l 013 Growth ed Report 20:00 After 4 Days [facility] No complet l 013 Growth ed Report 20:00 After 3 Days [facility] No complet l 013 Growth ed Report 20:00 After 48 Hours [facility] No complet l 013 Growth ed Report 20:00 After 24 Hours [facility] Culture complet l 013 In ed Report 20:00 Progres s [facility] CUL RES complet l 013 ed Report 20:00 (Final) [facility] Status: complet l 013 Final ed Report 20:00 Last Updated : 013 19:26 [facility] Collect complet l 013 ed: ed Report 20:00 013 20:00 [facility] Spec[facility] 013 n: ed Report 20:00 BLOOD
--- OUTSIDE RECORDS SUMMARY | 2017-08-02 02:28 | External Medical Summary Rpt | CCD ---
Author Author , [employer] Organization Address Unknown Phone Unavailable Allergies, Adverse Reactions, Alerts Results Procedures Social History Treatment Plan Family History Vital Signs Medications Problems Health Concerns Immunization Medical Equipment Mental Status Encounters
[2017-08-02] MEDS ORDERED: ACETAMINOPHEN500 M6 PO (03:00)
[2017-08-02] MEDS ORDERED: PROVENTIL0.09 MG/A1 IH (03:01)
[2017-08-02] MEDS ORDERED: ALBUTEROL2.5 MG/NEB INH (03:03)
[2017-08-02] MEDS ORDERED: ASPIRIN 81MG TA81 MG PO (03:04)
[2017-08-02] MEDS ORDERED: DILTIAZEM 180180 MG PO (03:05)
[2017-08-02] MEDS ORDERED: GOOD NEIGHBOR100 M2 PO (03:06)
[2017-08-02] MEDS ORDERED: FLUOXETINE40 MG PO (03:08)
[2017-08-02] MEDS ORDERED: Novolog100 U/ML SC ×2 (03:10→03:12)
[2017-08-02] MEDS ORDERED: LANTUS INS100 UNITS/ SC (03:14)
[2017-08-02] MEDS ORDERED: LEVOTHYROXINE0.05 MG PO (03:17)
[2017-08-02] MEDS ORDERED: NITROGLYCERIN0.4 MG SL (03:18)
[2017-08-02] MEDS ORDERED: ZOFRAN4 MG PO (03:20)
[2017-08-02] MEDS ORDERED: PANTOPRAZOLE40 M1 PO (03:24)
[2017-08-02] MEDS ORDERED: PERCOCET 5/3251 EACH PO (03:24)
[2017-08-02] MEDS ORDERED: PRAVACHOL 40MG40 MG PO (03:25)
[2017-08-02] MEDS ORDERED: MIRALAX(PO17 GM/1 PA PO (03:26)
[2017-08-02 05:05] LABS: HEMOGLOBIN 10.1 g/dL (12.2-16.2); LYMPH # 2.1 K/mm3 (0.7-4.5); LYMPH % 22.5 % (10-50.0)
--- NOTE | 2017-08-02 07:36 | PHARMACY CLINIC NOTE ---
Patient Demographics Patient Demographics Admission date: 08/02/17 Date: 08/02/17 Time: 0736 Allergies Coded Allergies: No Known Allergies (11/23/16) HEIGHT- FT: 5 IN: 6.00 K.044 VTE General Information Labs: Laboratory Tests 08/02 08/02 0410 0045 Hematology Hgb (12.2 - 16.2 g/dL) 10.1 L 11.2 L Hct (37.0 - 47.0 %) 31.4 L 35.0 L Plt Count (142 - 424 K/mm3) 297 307 Disclaimer The following section includes nursing documentation that has been pulled in for pharmacy review. Patient's VTE score: 5 Patient's VTE Risk: LOW RISK Clinical trial participant? No VTE prophylaxis NQF [id number] VTE prophylaxis ordered? Yes Type of prophylaxis/treatment: JACKIE at 0736
--- NOTE | 2017-08-02 09:34 | HISTORY AND PHYSICAL REPORT ---
Demographics: Admit date: 08/01/17 Chief complaint: pt with falls at home with back pain and was brought to ed with dec rom and inabilty to safety ambulate - pt with hx of esrd and cad with ht murmur and presents for eval- she was admitted as she was unable to ambulate and pain PRIMARY DIAGNOSIS: FALLS Allergies: Coded Allergies: No Known Allergies (11/23/16) History of present illness: History of present illness: pt with falls at home with back pain and was seen in the ed and inability to walk and no fever and has esrd and ht disease with prev stents and has ht murmur - is a 76-year-old lady brought to the emergency room by ambulance after sustaining multiple falls at home, throughout the day. The patient is a history of diabetes, end-stage renal dialysis, on hemodialysis, on Wednesday- Wednesday-Wednesday. Patient has missed the last 2 hemodialysis sessions, namely on Wednesday and Wednesday. When asked why she has skewed the dialysis the patient advised that "I'm no longer needed them". Her son flew in from [place] a week ago, trying to convince her to resume her dialysis, without any success. Patient denies any suicidal or homicidal ideation , does not have any hallucinations or psychosis. Past medical history: Family HX Diabetes Yes CAD No Hypertension Yes Hyperlipidemia No Cancer Yes TB No Immunization HX DT/Tetanus Refuses Flu 2015-FSN Pneumonia Received In Past TB Test in last year No General CAD? No Angina: No CA: No Hypertension? Yes Hyperlipidemia? Yes CHF? Yes DVT? No PE? No COPD? Yes Asthma? No Anemia? No GERD? No Gastric ulcers? No GI Bleed? No Hernia? No Thyroid Problems? Yes Hypothyroidism? Yes CVA? No Seizures? No Diabetes? Yes Insulin Dependent: Yes Insulin Pump: No Home FSBS? Yes Renal Insuffiency? Yes UTI? No Stones? No BPH? No GB Disease: No Nephritic Syndrome? No Asplenia? No Hepatitis? No Sickle Cell Disease? No Arthritis? No Migraines? No Cataracts? No Glaucoma? No MRSA? No HIV? No TB? No Anxiety? No Depression? No Cancer? No More? No Past Surgical HX Previous Surgery?Y GALLBLADDER Current home meds: Active Scripts SULFAMETHOXAZOLE W/TRIMETHOPRI (Bactrim Ds Tab) 1 TABLET PO DAILY #7 TAB Prov: 04/29/17 Reported Medications Acetaminophen 500 MG PO TID #2 ALBUTEROL (Proventil Hfa Inhaler) 1-2 PUFF IH Q4-6H PRN ALBUTEROL (Albuterol 0.083% Neb) 2.5 MG INH Q6HP PRN SOA, WHEEZING ASPIRIN (Aspirin) 81 MG PO DAILY DILTIAZEM HCL (Diltiazem 24HR ER) 180 MG PO BID Docusate Sodium (Stool Softener) 100 MG PO BID Fluoxetine Hcl (Fluoxetine) 40 MG PO DAILY INSULIN ASPART (Novolog) 100 SC QID INSULIN ASPART (Novolog) 5 UNITS SC TID Insulin Glargine (Lantus Insulin Vial) 46 UNITS SC DAILY LEVOTHYROXINE SOD (Synthroid) 50 MCG PO DAILY NITROGLYCERIN (Nitrostat) 0.4 MG SL [id number] PRN ANGINA Ondansetron (Zuplenz) 4 MG MM Q4 Oxycodone 5MG/[id number] (Oxycodone-Acetaminophen 5-325) 1-2 TAB PO Q4HP PRN PAIN #2 Pantoprazole Sodium (Pantoprazole) 40 MG PO DAILY PRAVASTATIN SODIUM (Pravastatin Sodium) 40 MG PO QHS POLYETHYLENE GLYCOL (Miralax) 17 GM PO DAILY Social Hx: Smoking HX Tobacco No Type Cigarettes Packs/day 1 1/2 - 2 PACKS Alcohol Alcohol: No Hx of Drug Use Drug Use? No Patien't marital status is Patient's support system is good Review of systems: Constitutional see HPI, weakness. No: fever. Eyes No: drainage. Ears, Nose, Mouth, Throat No ear discharge, No epistaxis, No throat pain Respiratory No: cough, shortness of breath, wheezing. Cardiovascular see HPI, No chest pain, No palpitations, No syncope, other Gastrointestinal/Abdominal see HPI, poor appetite, poor fluid intake, No vomiting Genitourinary No: dysuria, frequency, hesitancy, hematuria. Musculoskeletal No: back pain, joint pain, joint swelling, neck pain. Skin No: rash. Neurological No: headache, seizure disorder. Psychiatric No: depressed. Exam: Lab data for last 24 hours: Laboratory Tests 08/02/17 0410: Sodium 132 L, Potassium 5.4 H, Chloride 97 L, Carbon Dioxide 28, BUN 43 H, Creatinine 3.4 H, Estimated Creat Clear 20 L, Estimated GFR (MDRD) 13 *L, Glucose 189 H, Calcium 8.7, Creatine Kinase 18 L, CK-MB (CK-2) Rel Index 2.8, CK and CKMB Interp 0.5, Troponin I 0.04, WBC 9.3, RBC 3.35 L, Hgb 10.1 L, Hct 31.4 L, MCV 93.6, RDW 16.4, Plt Count 297, MPV 8.9, Gran % 67.1, Gran # 6.2, Lymphocytes % 22.5, Monocytes % 4.2, Eosinophils % 5.3, Basophils % 0.8, Lymphocytes # 2.1, Monocytes # 0.4, Eosinophils # 0.5 H, Basophils # 0.1, PUBS MCHC 32.0, MCH 30.0 08/02/17 0045: Sodium 130 L, Potassium 5.5 H, Chloride 95 L, Carbon Dioxide 28, BUN 42 H, Creatinine 3.4 H, Estimated Creat Clear 19 L, Estimated GFR (MDRD) 13 *L, Glucose 214 H, Calcium 9.0, Total Bilirubin 0.4, AST 13 L, ALT 11 L, Alkaline Phosphatase 187 H, Creatine Kinase 20 L, CK-MB (CK-2) Rel Index 3.5, CK and CKMB Interp 0.7, Troponin I 0.04, Total Protein 6.9, Albumin 2.5 L, Globulin 4.4 H, Albumin/Globulin Ratio 0.6 L, Amylase 19 L, Lipase 74, TSH 2.92, Free T4 Index 8.1, Thyroxine (T4) 9.0, T3 Uptake 36, WBC 9.5, RBC 3.73 L, Hgb 11.2 L, Hct 35.0 L, MCV 93.8, RDW 16.6, Plt Count 307, MPV 8.0, Gran % 73.4, Gran # 7.0, Lymphocytes % 17.0, Monocytes % 3.7, Eosinophils % 5.0, Basophils % 0.9, Lymphocytes # 1.6, Monocytes # 0.4, Eosinophils # 0.5 H, Basophils # 0.1, PUBS MCHC 32.1, MCH 30.1 Admission vital signs: 1ST Vital Signs Result Date Time Pulse Ox 96 10/22 2355 B/P 139/70 08/01 2355 O2 Flow Rate 2 08/01 2355 Temp 97.9 08/01 2355 Pulse 75 08/01 2355 Resp 20 08/01 2355 O2 Delivery OXYGEN 08/02 033 Exam General appearance: awake Eyes: PERRLA ENT: dry mucous membranes Neck: no JVD Cardiovascular: regular rate & rhythm, murmur Respiratory: no respiratory distress ABD: soft Genitourinary: no hematuria Extremities: moves all Musculoskeletal: equal muscle strength Skin: dry 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 Acute on chronic renal failure 2. CAD (coronary artery disease) 3. Fall 4. Heart murmur, systolic Plan: pt/ot eval and card eval and pt still does not wish dialysis at 0943
[2017-08-02] MEDS ORDERED: CYMBALTA30 MG PO (11:31)
[2017-08-02] MEDS ORDERED: HUMALOG MIX75/253 ML SC (11:50)
--- NOTE | 2017-08-02 12:01 | CONSULT NOTE ---
See Addendum Standard Demographics Patient Demo Date of Consultation: 08/02/17 Referring Provider: Annette Verduzco MD Reason for Consultation: Aortic stenosis PRIMARY DIAGNOSIS: FALLS Problem list Problem list: 1. Coronary artery disease A. History of coronary artery stenting per records. 2. Diabetes mellitus, insulin-dependent 3. End-stage renal disease for which patient has been on dialysis and recently decided to withdraw dialysis. 4. Hypertension 5. Hyperlipidemia 6. Chronic obstructive pulmonary disease with remote tobacco use (discontinued greater than 40 years ago) History of present illness: History of present illness: pt with falls at home with back pain and was seen in the ed and inability to walk and no fever and has esrd and ht disease with prev stents and has ht murmur - is a 76-year-old lady brought to the emergency room by ambulance after sustaining multiple falls at home, throughout the day. The patient is a history of diabetes, end-stage renal dialysis, on hemodialysis, on Wednesday- Wednesday-Wednesday. Patient has missed the last 2 hemodialysis sessions, namely on Wednesday and Wednesday. When asked why she has skewed the dialysis the patient advised that "I'm no longer needed them". Her son flew in from [place] a week ago, trying to convince her to resume her dialysis, without any success. Patient denies any suicidal or homicidal ideation , does not have any hallucinations or psychosis. The above per emergency department physician. Patient relates sitting on a rail recently and in [place] slide off. She did have help going to the ground she denies any chest pain or loss of consciousness. He is very sleepy and drifts off during exam. Cardiology consulted due to known aortic stenosis of moderate severity by echocardiogram in April. Concern for acute worsening. Echocardiogram has been performed with official results pending. Past Medical History: General: Hypertension Yes CVA No Seizures No TB No COPD Yes Asthma No Diabetes Yes Insulin Dependent Yes Insulin Pump No Angina No [place] No Hyperlipidemia Yes Urinary No Cancer No Rheumatic H.D. No Ulcers No MRSA No GB Disease No Past Surgical HX: Previous Surgery?Y GALLBLADDER Allergies Coded Allergies: No Known Allergies (11/23/16) Home medications: Active Scripts SULFAMETHOXAZOLE W/TRIMETHOPRI (Bactrim Ds Tab) 1 TABLET PO DAILY #7 TAB Prov: 04/29/17 Reported Medications Acetaminophen 1,000 MG PO TIDP PRN ARTHRITIS PAIN ALBUTEROL (Proventil Hfa Inhaler) 2 PUFF IH Q4-6H PRN DILTIAZEM HCL (Tiazac) 180 MG PO DAILY Levothyroxine Sodium (Levothyroxine) 0.05 MG PO DAILY ONDANSETRON HCL (Zofran 4MG Tab) 4 MG PO Q4HP PRN NAUSEA AND VOMITING Oxycodone 5MG/[id number] (Oxycodone-Acetaminophen 5-325) 1 TAB PO TIDP PRN PAIN DULOXETINE HCL (Cymbalta 30MG) 30 MG PO DAILY INSULIN NPL/INSULIN LISPRO (Humalog Mix 75-25 Kwikpen) 20 UNITS SC QAM ALBUTEROL (Albuterol 0.083% Neb) 2.5 MG INH Q6HP PRN SOA, WHEEZING ASPIRIN (Aspirin) 81 MG PO DAILY Docusate Sodium (Stool Softener) 100 MG PO BID NITROGLYCERIN (Nitrostat) 0.4 MG SL [id number] PRN ANGINA Pantoprazole Sodium (Pantoprazole) 40 MG PO DAILY PRAVASTATIN SODIUM (Pravastatin Sodium) 40 MG PO QHS Current Medications: Current Medications Sodium Polystyrene Sulfonate 0 .STK-MED ONE .ROUTE (DC) Sodium Polystyrene Sulfonate 0 .STK-MED ONE .ROUTE (DC) Influenza Virus Vaccine Quadrival 0.5 ML PRN PRN IM Sodium Polystyrene Sulfonate 30 GM ONCE ONE PO (DC) Sodium Chloride 10 ML PRN PRN IV Immunization HX DT/Tetanus Refuses Flu 2015-17FSN Pneumonia RECEIVED IN PAST TB Test in last year No Family history Family HX Family Hx Insignificant No Diabetes Yes CAD No Hypertension Yes Hyperlipidemia No Cancer Yes TB No Social Hx: Smoking HX Tobacco No Type Cigarettes Packs/day 1 1/2 - 2 PACKS Alcohol Alcohol: No Hx of Drug Use Drug Use? No Review of systems: Constitutional weakness. Respiratory SOB with excertion. Cardiovascular No no symptoms reported Gastrointestinal/Abdominal No no symptoms reported Genitourinary No: no symptoms reported. Musculoskeletal back pain. Neurological No: no symptoms reported. Exam: Admission Vital Signs: 1ST Vital Signs Result Date Time Pulse Ox 96 08/01 2355 B/P 139/70 08/01 2355 O2 Flow Rate 2 08/01 2355 Temp 97.9 08/01 2355 Pulse 75 08/01 2355 Resp 20 08/01 2355 O2 Delivery OXYGEN 08/02 330 Last Vital Signs: Vital Signs Result Date Time Pulse Ox 94 08/02 1141 B/P 133/54 08/02 114 O2 Delivery OXYGEN 08/02 1141 Temp 97.7 08/02 114 Pulse 68 08/02 114 Resp 20 08/02 114 O2 Flow Rate 2 08/02 0915 Exam General appearance: patient awakens to verbal stimuli but drifts to sleep easily. Neck: no carotid bruit, no JVD, radiation murmur is appreciated. Cardiovascular: regular rate and rhythm with holosystolic musical murmur noted in the aortic area with radiation throughout the chest. Respiratory: fair respiratory effort without wheezing or rales noted. ABD: soft, no tenderness Extremities: moves all Neuro: answers questions appropriately. Laboratory data: Laboratory Tests 08/02/17 0950: Creatine Kinase 20 L, CK-MB (CK-2) Rel Index 3.5, CK and CKMB Interp 0.7, Troponin I 0.04 08/02/17 0950: Sodium 132 L, Potassium 5.1, Chloride 96 L, Carbon Dioxide 29, BUN 42 H, Creatinine 3.4 H, Estimated Creat Clear 20 L, Estimated GFR (MDRD) 13 *L, Glucose 223 H, Calcium 9.0 08/02/17 0410: Sodium 132 L, Potassium 5.4 H, Chloride 97 L, Carbon Dioxide 28, BUN 43 H, Creatinine 3.4 H, Estimated Creat Clear 20 L, Estimated GFR (MDRD) 13 *L, Glucose 189 H, Calcium 8.7, Creatine Kinase 18 L, CK-MB (CK-2) Rel Index 2.8, CK and CKMB Interp 0.5, Troponin I 0.04, WBC 9.3, RBC 3.35 L, Hgb 10.1 L, Hct 31.4 L, MCV 93.6, RDW 16.4, Plt Count 297, MPV 8.9, Gran % 67.1, Gran # 6.2, Lymphocytes % 22.5, Monocytes % 4.2, Eosinophils % 5.3, Basophils % 0.8, Lymphocytes # 2.1, Monocytes # 0.4, Eosinophils # 0.5 H, Basophils # 0.1, PUBS MCHC 32.0, MCH 30.0 08/02/17 0045: Sodium 130 L, Potassium 5.5 H, Chloride 95 L, Carbon Dioxide 28, BUN 42 H, Creatinine 3.4 H, Estimated Creat Clear 19 L, Estimated GFR (MDRD) 13 *L, Glucose 214 H, Calcium 9.0, Total Bilirubin 0.4, AST 13 L, ALT 11 L, Alkaline Phosphatase 187 H, Creatine Kinase 20 L, CK-MB (CK-2) Rel Index 3.5, CK and CKMB Interp 0.7, Troponin I 0.04, Total Protein 6.9, Albumin 2.5 L, Globulin 4.4 H, Albumin/Globulin Ratio 0.6 L, Amylase 19 L, Lipase 74, TSH 2.92, Free T4 Index 8.1, Thyroxine (T4) 9.0, T3 Uptake 36, WBC 9.5, RBC 3.73 L, Hgb 11.2 L, Hct 35.0 L, MCV 93.8, RDW 16.6, Plt Count 307, MPV 8.0, Gran % 73.4, Gran # 7.0, Lymphocytes % 17.0, Monocytes % 3.7, Eosinophils % 5.0, Basophils % 0.9, Lymphocytes # 1.6, Monocytes # 0.4, Eosinophils # 0.5 H, Basophils # 0.1, PUBS MCHC 32.1, MCH 30.1 Plan: Assessment: 1. Aortic stenosis of at least moderate severity by recent echocardiogram at [facility] in April,. Patient reportedly was offered either repair or replacement at that time but she declined stating, "it's a new procedure and I didn't feel like they needed to be doing it on me." Will await official reading by preliminary numbers appear similar to those of April,. 2. End-stage renal disease, currently declining continuation of dialysis 3. Mild hyperkalemia 4. Diabetes mellitus, insulin requiring 5. Chronic obstructive pulmonary disease 6. Frequent falls, etiology unknown. 7. Mild anemia Recommendations: Will await official reading of echo. If aortic stenosis is more severe than will refer back to [facility] or to a hospital in [place] for either repair or replacement if patient wishes. Otherwise continue current therapy with no further workup at this time. at 1350
--- NOTE | 2017-08-02 16:31 | RADIOLOGY REPORT PS360 ---
PELVIS AP ONLY HISTORY: sobpelvic pain low back pain. Patient Age: 76 years: Female Ordering Physician: Elieser Verduzco MD TECHNIQUE: AP pelvis radiograph COMPARISON :A previous CT lumbar spine January 2014 partially images the upper pelvis FINDINGS Osseous pelvis with no acute findings. No fracture. Diffuse demineralization. The dense bone cement from previous kyphoplasty at L5 & L4 noted No lesions evident at the pelvis. What can be seen at the osteoporotic sacrum unremarkable. Superior and inferior ramus as well as iliac bones unremarkable.SI joints unremarkable. Mild joint space narrowing at the superior left hip joint space. A suggesting mild degenerative changes at right hip joint is slightly better maintained. IMPRESSION: 1. Osseous pelvis intact with no acute findings Diffuse demineralization Suggestion early degenerative changes left hip joint
--- NOTE | 2017-08-02 16:38 | RADIOLOGY REPORT PS360 ---
CHEST-AP VIEW ONLY HISTORY: sob Patient Age: 76 years: Female Ordering Physician: Elieser Verduzco MD TECHNIQUE: AP portable supine chest COMPARISON :09/22/2017 FINDINGS Double lumen hemodialysis catheter in place entering from the left likely internal jugular access point. The tip is at the caval atrial junction and appears to be in satisfactory position. Mild cardiomegaly noted. Calcified aortic knob. Coronary artery stents in place. Lungs clear with no active disease. Vertebral kyphoplasty radiopaque material within vertebral seen at T12 L1 L2 vertebral on this chest image There is a supine study which likely accounts for the slightly generous upper lobe vessels. No overt CHF or definitive pulmonary edema otherwise. In fact pulmonary venous/vascular pattern appears less pronounced and improved when compared to November 2016 CXR & significant improved when compared to 02/02/2014 CXR IMPRESSION: ======== Double lumen Hemodialysis catheter in place Cardiomegaly Mild vascular engorgement but no overt CHF/or sydnee pulmonary edema . No pleural effusions. No focal pneumonia.
--- NOTE | 2017-08-02 16:45 | RADIOLOGY REPORT PS360 ---
LUMBAR SPINE 5 VIEWS HISTORY: sob Patient Age: 76 years: Female Ordering Physician: Elieser Verduzco MD TECHNIQUE: Five-view lumbar spine series COMPARISON :CT lumbar spine from January 2014 FINDINGS Patient is diffuse pronounced osteoporosis demineralization with multiple compression fractures. Wedge Compression fracture most evident at L3, L2 vertebral bodies... Suggestion of perhaps superior endplate compression endplate concavity which is occurred at L4- & L5. Occurred since previous CT from January 2014. With this there has been Interval vertebroplasty/kyphoplasty performed at at multiple levels now seen at L1-L2 L3-L4 & L5 vertebral bodies since 2013. . There may also be a mild superior endplate compression at T12 question is seen at margin of image. Most likely old. No definitive acute findings . With no interval studies for comparison is difficult to totally exclude such. These at right catheter case aorta. No aneurysm. Prominent stool throughout colon generous fluid in stomach IMPRESSION: Pronounced osteoporosis and demineralization making visualization of osseous structures difficult When compared to 2014 CT Lumbar there has been interval compression fractures throughout the spine, most evident loss of height & compression L3 and L2 vertebra. Also possibly mild superior endplate compression at L4 and L5 vertebra. With this there has also been interval vertebral plasty/kyphoplasty performed at L1, L2, L3, L4 and L5. No discrete acute findings identified .
--- NOTE | 2017-08-02 19:34 | RADIOLOGY REPORT PS360 ---
PROCEDURE: 2-D M-mode and color Doppler study INDICATIONS FOR THE TEST: Chest pain COPD Heart Murmur Tobacco Smoking Palpitations Fatigue Syncope Edema HypertensionXDiabetes MellitusX Rheumatic Fever SOBXDOE ObesityXHyperlipidemiaX Family History HD Additional History ,LVH PATIENT INFORMATION HEIGHT: 66 WEIGHT:205 GENDER: Female B/P:115/70 2-D/M-MODE INTERPRETATION: 2-D MEASUREMENTS OBSERVED VALUES IN CMS Right Ventricular Dimension (RVDd) 3.3 Interventricular Septum (Thickness)(IVsd) 2.2 Left Ventricular Internal Dimensions(LVIDd) 4.5 Left Ventricular Posterior Wall (Thickness)(LVPWd) 1.6 Aortic Root 3.2 Aortic Cusp Separation .7 Left Atrial Dimensions (LAD) 4.5 2D 1. Left atrium is mildly enlarged, left ventricle is normal size, there is moderate concentric left ventricular hypertrophy, visually estimated ejection fraction 55% with no obvious regional wall motion abnormality. 2. The right atrium is mildly enlarged, right ventricle is mildly dilated with normal contractility. 3. The aortic valve is heavily thickened and calcified with severe restriction the leaflet mobility. 4. The mitral and tricuspid valve leaflets are minimally thickened. 5. The pulmonic valve is poorly visualized 6. No significant pericardial effusion noted. DOPPLER INTERROGATION: 1. The maximum aortic out flow velocity recorded study is 3.5 m/s, resulting in a mean gradient across valve of 34 mmHg, valve area is not accurately calculated, morphologically there is severe aortic stenosis, there is mild aortic insufficiency present. 2. The mitral inflow velocity within normal range, there is no mitral stenosis, there is mild mitral regurgitation. Diastolic parameters are inconclusive. 3. There is mild tricuspid regurgitation noted, tricuspid and enteric velocity insufficient for calculation of the right ventricular systolic pressure. CONCLUSION: 1. Mild biatrial enlargement, normal left ventricular size, moderate concentric left ventricular hypertrophy, visually estimated ejection fraction 55% with no obvious regional wall motion abnormality. Diastolic parameters are inconclusive. 2. Thickened and calcified aortic valve morphologically there is severe aortic stenosis, mean gradient across valve is 34 mmHg, there is mild aortic insufficiency present. 3. Mild mitral and tricuspid regurgitation. 4. No significant pericardial effusion noted.
[2017-08-03 04:00] VITALS: BP 134/62
[2017-08-03 07:31] LABS: URINE BILIRUBIN - DIPSTICK NEGATIVE (NEG); URINE BLOOD 1+ (NEG)
[2017-08-03 07:33] LABS: HEMOGLOBIN 10.4 g/dL (12.2-16.2); LYMPH # 1.3 K/mm3 (0.7-4.5); LYMPH % 10.4 % (10-50.0)
[2017-08-03 08:30] VITALS: BP 131/57
--- NOTE | 2017-08-03 08:58 | ACUTE CARE PROGRESS NOTE (QUA) ---
Progress Notes Subjective Date 08/03/17 Time 0855 Patient/family reports: feeling better, pain Nursing reports: alert Objective Findings Last VS-Temp:98.2 B/P:134/62 Pulse:71 Resp:24 SaO2:97 OXYGEN Last weight lbs:203 oz:9 K.334 Method:Bed Scales Exam General appearance: normal appearance, alert, active, no acute distress Eyes: normal exam ENT: normal exam Neck: normal inspection, no carotid bruit, full range of motion Cardiovascular: murmur Respiratory: normal exam, clear to auscultation, good air movement, normal breath sounds, no respiratory distress ABD: normal exam, non-distended, normal bowel sounds, no rebound, soft Genitourinary: normal voiding & quantity Extremities: normal exam, moves all, warm Musculoskeletal: normal exam, joint pain, muscle pain Skin: normal exam, intact, warm Neuro: normal exam, alert, intact, no deficit, oriented Reviewed: allergies, medications, vital signs, lab results, radiology report Assessment/Plan Problem List 1. Acute on chronic renal failure Qualifiers: Acute renal failure type: unspecified Chronic kidney disease stage: unspecified stage Qualified Code: N17.9 - Acute kidney failure, unspecified 2. CAD (coronary artery disease) 3. Fall 4. Heart murmur, systolic Patient condition Stable Plan: continue current care This inpt stay is expected to cross 2 MNs from start of care No Comments: Dr bueno rounded earlier, wait hospice consult Antibiotic Stewardship (2) Current Culture Results Microbiology 08/03 0712 URINE CC: Urine Culture - RECD at 0858
[2017-08-03 12:30] VITALS: BP 103/44
--- NOTE | 2017-08-03 13:26 | DISCHARGE SUMMARY STANDARD ---
Demographics Admit date: 08/01/17 Discharge date: 08/03/17 History of present illness History of present illness pt with falls at home with back pain and was seen in the ed and inability to walk and no fever and has esrd and ht disease with prev stents and has ht murmur - is a 76-year-old lady brought to the emergency room by ambulance after sustaining multiple falls at home, throughout the day. The patient is a history of diabetes, end-stage renal dialysis, on hemodialysis, on Wednesday- Wednesday-Wednesday. Patient has missed the last 2 hemodialysis sessions, namely on Wednesday and Wednesday. When asked why she has skewed the dialysis the patient advised that "I'm no longer needed them". Her son flew in from [place] a week ago, trying to convince her to resume her dialysis, without any success. Patient denies any suicidal or homicidal ideation , does not have any hallucinations or psychosis. The above per emergency department physician. Patient relates sitting on a rail recently and in [place] slide off. She did have help going to the ground she denies any chest pain or loss of consciousness. He is very sleepy and drifts off during exam. Cardiology consulted due to known aortic stenosis of moderate severity by echocardiogram in April. Concern for acute worsening. Echocardiogram has been performed with official results pending. Hospital Course Hospital Course: hospice consult- pt refused and now wants to start back on dailysis. xray: IMPRESSION: Pronounced osteoporosis and demineralization making visualization of osseous structures difficult When compared to 2014 CT Lumbar there has been interval compression fractures throughout the spine, most evident loss of height & compression L3 and L2 vertebra. Also possibly mild superior endplate compression at L4 and L5 vertebra. With this there has also been interval vertebral plasty/kyphoplasty performed at L1, L2, L3, L4 and L5. No discrete acute findings identified echo: CONCLUSION: 1. Mild biatrial enlargement, normal left ventricular size, moderate concentric left ventricular hypertrophy, visually estimated ejection fraction 55% with no obvious regional wall motion abnormality. Diastolic parameters are inconclusive. 2. Thickened and calcified aortic valve morphologically there is severe aortic stenosis, mean gradient across valve is 34 mmHg, there is mild aortic insufficiency present. 3. Mild mitral and tricuspid regurgitation. 4. No significant pericardial effusion noted spoke with dr prater at [facility] [place] in [place] he acceptted pt. Discharge diagnoses Problem List 1. Acute on chronic renal failure 2. CAD (coronary artery disease) 3. Fall 4. Heart murmur, systolic Medications Medications: Discharge meds are as noted. Follow up Follow up in office in: 4 DAYS with: Ximena ESPINOZA,Elieser Nichols Comment: ximena rounded earlier, ok to transfer at [id number]
[2017-08-03 16:10] VITALS: BP 103/44
== END 2017-08-03 16:09 | disposition short-term general hospital (02) ==
LOC: ER 23:54 → 2ND 08-02 02:05 → ER 08-02 02:05 → 2ND 08-02 02:13
PROVIDERS: Emergency Medicine
DX: I35.0 Nonrheumatic aortic (valve) stenosis (principal); I12.0 Hypertensive chronic kidney disease with stage 5 chronic kidney disease or end stage renal disease; E11.22 Type 2 diabetes mellitus with diabetic chronic kidney disease; N18.6 End stage renal disease; Z99.2 Dependence on renal dialysis; Z91.15 Patient's noncompliance with renal dialysis; Z72.0 Tobacco use; Z79.4 Long term (current) use of insulin; Z91.81 History of falling; J44.9 Chronic obstructive pulmonary disease, unspecified; I25.10 Atherosclerotic heart disease of native coronary artery without angina pectoris; Z95.5 Presence of coronary angioplasty implant and graft
CPT/HCPCS: G0378; G8978; G8979; G8980; G8990; G8991; G8992